=== PATIENT | female | born 1955 | race Caucasian/White ===

== ENCOUNTER → 2016-11-26 | Outpatient (CLI) | payer BC ==
[~2016-11-26] MED LIST: ACET-1256 PO; AMPI500C9 PO; ARFO15NE INH; AUGMENTIN PO; AZIT500T26 PO; BRVIN NEB; CALC1CHW57 PO; CLIN300C2 PO; DOCU-94 PO; FEXO3TAB PO; FLUT0.0529 NAE; IMD/2 PO; IPRASOL4 INH; LACT10CA3 PO; MAGN400T6 PO; METHPOW7 PO; MOUTLIQ83 PO; MRLP17X PO; MULT-506 PO; MULTCHW4 PO; NYSCR30 EXT; OMEG10007 PO; POTA10TA PO; POTA20TA13 PO; PRD10; PRLSR20 PO; PROB1TAB16 PO; TRAV0.00 OPR; TRMO2580 TOP
[2016-11-26 14:01] VITALS: BP 126/82; PULSE 71; TEMP 36.8; O2SAT 96
== END | disposition home or self-care (01) ==
LOC: C.ONC 13:55
PROVIDERS: ATTEND Radiology Radiation Oncology
DX: C20 Malignant neoplasm of rectum (principal)

== ENCOUNTER → 2016-12-10 | Outpatient (CLI) | payer BC ==
[2016-11-26 14:01] VITALS: BP 126/82; PULSE 71
--- NOTE | 2016-11-26 16:40 | Radiation Oncology Follow-Up ---
Radiation Oncology Follow-Up Date of Visit Nov 26, 2016. (Arabella Collier PA-C) Reason For Visit Patient requested an evaluation due to perianal irritation. (Arabella Collier PA-C) Radiation Completion Date finished 11-28-2015 (Arabella Collier PA-C) Diagnosis (1) Rectal cancer Status: Resolved Onset Date: 08/08/2015 Stage: lll Permanent Comment: DIAGNOSIS: Rectum, adenocarcinoma, uT2N1, stage III Status post completion of combined neoadjuvant radiation and chemotherapy. Radiation completed 11/28/2014 received 5040 cGy Chemotherapy comprised of Xeloda Status post laparoscopic low anterior resection with loop ileostomy 01/13/2016 Stage ypT2 ypN0 M0 Adjuvant intravenous chemotherapy for 1 dose then anaphylactic reaction Adjuvant chemotherapy with Xeloda 6 cycles Plan for ileostomy reversal Last Edited By: Arabella Collier on Nov 26, 2016 16 :58 (Arabella Collier PA-C) History of Present Illness Ms. Mcnulty is a 60-year-old female who initially presented with an episode of bright red blood per rectum several months ago. She states she did have a colonoscopy 5 years ago and was scheduled to have a repeat colonoscopy a year following that never had it because of several issues. She states that the bleeding has continued since then went to does pass stool. She went to the emergency room and the beginning of August 2015 and was admitted to [facility]. She underwent a colonoscopy by Dr. Ayala which revealed a large polypoid lesion lesion and 10 cm proximal to the anus that was semi-pedunculated with losing. A biopsy was taken which showed adenocarcinoma and genetic testing did not show the presence of Hardy syndrome. The patient then underwent an lower endoscopic ultrasound on 08/30/[address] Marroquin which confirmed the presence a hypoechoic mass in the rectum at 8 cm from the anal verge. He staged the tumor as uT2N1. He noted that there was one malignant- appearing lymph node in the common iliac region. The patient was referred to Dr. Powell who is recommended preoperative chemoradiation therapy. The patient will be seen by Dr. Henderson at [facility] for surgical evaluation in the end of October. We are now seeing the patient in consultation. She completed combined radiation and chemotherapy. Radiation was completed and received 5040 cGy. Treatment was combined with Xeloda. She underwent the laparoscopic low anterior resection and loop ileostomy 2015. She was hospitalized for 2 days. She has been steadily recuperating. She did lose approximate 20 pounds following surgery. Her appetite has been decreased. The path report revealed invasive adenocarcinoma with a small residual tumor of 0.6 cm. 17 lymph nodes were evaluated and negative for metastatic disease. She was staged ypT2 ypN0. Specimen [id number]. She has seen Dr. Powell in follow-up and recommendation is for adjuvant chemotherapy. A regimen has been recommended. She was given 1 dose of adjuvant IV chemotherapy and had an anaphylactic reaction. Decision was made for no further IV chemotherapy. She then took Xeloda. She did develop severe diarrhea and on one occasion was hospitalized for low magnesium and potassium. This was in June. She completed the treatments and has steadily improved. Her energy levels are getting back to normal. She underwent a barium enema on 08/27/2016. There was no leakage at the anastomosis site. Small contrast-filled outpouching later emptied appears to be related to the surgical technique. She also had a flexible sigmoidoscopic examination. This showed inflamed mucosa in the sigmoid colon. N2 and colorectal anastomosis, characterized by an intact appearance. She also had a CAT scan of the chest abdomen and pelvis on 08/18/2016. There were no acute abdominal or pelvic findings. No evidence of bowel obstruction. No evidence of free fluid. No acute inflammatory changes. No evidence of metastatic disease. CT of the chest showed no acute intrathoracic findings. No CT evidence of intrathoracic metastasis. She will now be going on to have her ileostomy reversed. She also stated that she'll be having a colonoscopy proximally 6 weeks following the ileostomy reversal. (Arabella Collier PA-C) Interim History She has now completed the ileostomy reversal. She unfortunately has frequent loose bowel movements. At times this can become constipated. Many times she' ll have 10 bowel movements per day. With the frequent bowel movements she has developed irritation in the perianal area. She has been using Desitin area and she uses Imodium if the bowels are loose. She has also used Mirilax. She takes Citrucel daily. She is tried Aquaphor also to the anal region. She noticed especially increased loose bowels after eating fresh fruit. She has not been doing sitz baths. She had concerned about irritation after bathing and using soap products. Her appetite is good and her weight is stable. (Arabella Collier PA-C) Allergies Coded Allergies: Levofloxacin (Verified Allergy, Severe, SHORTNESS OF BREATH, 11/26/16) Oxaliplatin (Verified Allergy, Severe, SOB, face numbess, trouble swallowing, 09/29/16) Dust (Verified Allergy, Intermediate, SNEEZING, RUNNY NOSE, ITCHY EYES., 09/29/16) Molds and Smuts (Verified Allergy, Intermediate, RUNNY NOSE, ITCHY EYES, SNEEZING, 09/29/16) Sulfa Antibiotics (Verified Allergy, Mild, HIVES,ITCHY, 09/29/16) Codeine (Verified Adverse Reaction, Mild, NAUSEA, 09/29/16) Morphine and Related (Verified Adverse Reaction, Mild, nausea, 09/29/16) Moxifloxacin (Verified Adverse Reaction, Unknown, "I GET DIZZY.", 09/29/16 ) Home Medications Scheduled Arformoterol Tartrate (Brovana 15MCG/2ML Soln), 1 VIAL NEB BID Calcium W/ Vitamins D & K (Calcium + D), 1 TAB PO DAILY Docusate Sodium (Colace), 1 CAP PO BID Multiple Vitamins W/ Calcium (Viactiv Multi-Vitamin), 1 TAB PO DAILY Potassium Chloride Microencaps (Potassium Chloride Er), 1 TAB PO DAILY Probiotic Product (Probiotic), 1 TAB PO DAILY Scheduled PRN Fluticasone Propionate (Nasal) (Flonase), 1-2 SPRAYS DUANE DAILY PRN Ipratropium-Albuterol (Duoneb), 1 TREATMENT INH Q4H PRN for SOB/Wheezing Loperamide Hcl (Imodium), 2 MG PO Q6 PRN for Diarrhea Omeprazole (Prilosec), 20 MG PO DAILY PRN for ACID REFLUX Review of Systems Gastrointestinal: Symptoms: Constipation, Diarrhea GI Comments: IBS , goes between diarhea and constipation Oral: Symptoms: No Problems Respiratory: Symptoms: WNL Urinary: Symptoms: WNL Skin: Other Skin Symptoms: "anal area is sore " (Arabella Collier PA-C) Physical Exam Pain: Pain Onset: since surgery for reversal Pain Duration: constant Side: Bilateral Patient Pain Scale: 0 - 10 Initial Pain Intensity: 9.0 Pain Description: Burning, Throbbing Additional Comments: gets worse at times Fatigue: None General Appearance: no apparent distress Eyes: normal inspection ENT: normal ENT inspection, hearing grossly normal Respiratory/Chest: lungs clear, no respiratory distress, no accessory muscle use Cardiovascular: regular rate, rhythm, no gallop, no murmur Abdomen: non tender, soft Anal / Rectum: There is erythema of the gluteal fold. This is well demarcated. The borders are more intensely red with a macular distribution. There are no masses or tenderness. No rectal bleeding. No rectal discharge. No telangiectasis. Neurologic/Psychiatric: no motor/sensory deficits (Arabella Collier PA-C) Laboratory Studies Test 09/21/16 08:20 09/29/16 12:00 09/29/16 12:25 10/15/16 09:45 Magnesium Level 2.2 mg/dl (1.8-2.4) Total Bilirubin 0.3 mg/dl (0.2-1) Aspartate Amino Transferase (AST) 21 U/L (15-37) Alanine Aminotransferase (ALT) 29 U/L (12-78) Alkaline Phosphatase 85 U/L (45-117) Total Protein 7.2 gm/dl (6.4-8.2) Albumin 3.6 gm/dl (3.4-5.0) Globulin 3.6 gm/dl (2.5-4.0) Albumin/Globulin Ratio 1.0 (0.9-2) Urine Color YELLOW YELLOW Urine Appearance CLEAR (CLEAR) CLEAR (CLEAR) Urine pH 5.5 (4.5-7.5) 5.5 (4.5-7.5) Urine Specific Donaldson 1.008 (1.000-1.030) 1.017 (1.000-1.030) Urine Protein NEG (NEG) NEG (NEG) Urine Glucose (UA) NEG (NEG) NEG (NEG) Urine Ketones NEG (NEG) NEG (NEG) Urine Occult Blood TRACE (NEG) NEG (NEG) Urine Nitrite NEG (NEG) NEG (NEG) Urine Bilirubin NEG (NEG) NEG (NEG) Urine Urobilinogen NEG (NEG) NEG (NEG) Urine Leukocyte Esterase TRACE (NEG) SMALL (NEG) Urine WBC (Auto) 1-5 /hpf (0-5) 5-10 /hpf (0-5) Urine RBC (Auto) 0-4 /hpf (0-4) 0-4 /hpf (0-4) Urine Hyaline Casts (Auto) 0 /lpf (0-5) 1-5 /lpf (0-5) Urine Epithelial Cells (Auto) 5-10 /lpf (0-5) 10-20 /lpf (0-5) Urine Bacteria (Auto) NEG (NEG) NEG (NEG) White Blood Count 6.90 K/uL (4.8-10.8) Red Blood Count 3.86 M/uL (4.2-5.4) Hemoglobin 11.3 g/dL (12.0-16.0) Hematocrit 33.7 % (37-47) Mean Corpuscular Volume 87.3 fL (80-100) Mean Corpuscular Hemoglobin 29.3 pg (25-34) Mean Corpuscular Hemoglobin Concent 33.5 g/dl (32-36) Platelet Count 193 K/uL (130-400) Mean Platelet Volume 9.4 fL (7.4-10.4) Neutrophils (%) (Auto) 85.9 % Lymphocytes (%) (Auto) 6.8 % Monocytes (%) (Auto) 6.7 % Eosinophils (%) (Auto) 0.4 % Basophils (%) (Auto) 0.1 % Neutrophils # (Auto) 5.92 K/uL (1.4-6.5) Lymphocytes # (Auto) 0.47 K/uL (1.2-3.4) Monocytes # (Auto) 0.46 K/uL (0.11-0.59) Eosinophils # (Auto) 0.03 K/uL (0-0.5) Basophils # (Auto) 0.01 K/uL (0-0.2) RDW Standard Deviation 41.9 fL (36.4-46.3) RDW Coefficient of Variation 13.0 % (11.5-14.5) Immature Granulocyte % (Auto) 0.1 % Immature Granulocyte # (Auto) 0.01 K/uL (0.00-0.02) Sodium Level 137 mmol/L (136-145) Potassium Level 4.0 mmol/L (3.5-5.1) Chloride Level 103 mmol/L (98-107) Carbon Dioxide Level 24 mmol/L (21-32) Anion Gap 10.0 mmol/L (3-11) Blood Urea Nitrogen 18 mg/dl (7-18) Creatinine 0.78 mg/dl (0.60-1.20) Est Creatinine Clear Calc Drug Dose 79.4 ml/min Estimated GFR () 95.8 Estimated GFR (Non- 82.6 BUN/Creatinine Ratio 23.6 (10-20) Random Glucose 95 mg/dl (70-99) Lactic Acid Level 0.5 mmol/L (0.4-2.0) Calcium Level 8.9 mg/dl (8.5-10.1) Test 11/20/16 15:41 11/25/16 15:49 White Blood Count 5.49 K/uL (4.8-10.8) Red Blood Count 4.03 M/uL (4.2-5.4) Hemoglobin 11.5 g/dL (12.0-16.0) Hematocrit 33.1 % (37-47) Mean Corpuscular Volume 82.1 fL (80-100) Mean Corpuscular Hemoglobin 28.5 pg (25-34) Mean Corpuscular Hemoglobin Concent 34.7 g/dl (32-36) Platelet Count 263 K/uL (130-400) Mean Platelet Volume 9.3 fL (7.4-10.4) Neutrophils (%) (Auto) 60.2 % Lymphocytes (%) (Auto) 29.1 % Monocytes (%) (Auto) 5.8 % Eosinophils (%) (Auto) 4.0 % Basophils (%) (Auto) 0.5 % Neutrophils # (Auto) 3.30 K/uL (1.4-6.5) Lymphocytes # (Auto) 1.60 K/uL (1.2-3.4) Monocytes # (Auto) 0.32 K/uL (0.11-0.59) Eosinophils # (Auto) 0.22 K/uL (0-0.5) Basophils # (Auto) 0.03 K/uL (0-0.2) RDW Standard Deviation 42.3 fL (36.4-46.3) RDW Coefficient of Variation 14.0 % (11.5-14.5) Immature Granulocyte % (Auto) 0.4 % Immature Granulocyte # (Auto) 0.02 K/uL (0.00-0.02) Sodium Level 141 mmol/L (136-145) Potassium Level 4.2 mmol/L (3.5-5.1) Chloride Level 105 mmol/L (98-107) Carbon Dioxide Level 25 mmol/L (21-32) Anion Gap 11.0 mmol/L (3-11) Blood Urea Nitrogen 18 mg/dl (7-18) Creatinine 0.77 mg/dl (0.60-1.20) Est Creatinine Clear Calc Drug Dose 83.8 ml/min Estimated GFR () 97.3 Estimated GFR (Non- 83.9 BUN/Creatinine Ratio 23.4 (10-20) Random Glucose 89 mg/dl (70-99) Calcium Level 9.1 mg/dl (8.5-10.1) Total Bilirubin 0.2 mg/dl (0.2-1) Aspartate Amino Transferase (AST) 19 U/L (15-37) Alanine Aminotransferase (ALT) 25 U/L (12-78) Alkaline Phosphatase 97 U/L (45-117) Lactate Dehydrogenase 170 U/L (84-246) Total Protein 6.7 gm/dl (6.4-8.2) Albumin 3.6 gm/dl (3.4-5.0) Globulin 3.1 gm/dl (2.5-4.0) Albumin/Globulin Ratio 1.2 (0.9-2) Magnesium Level 2.3 mg/dl (1.8-2.4) (Arabella Collier PA-C) Assessment & Plan Plan: The irritation is due to frequent liquid bowel movements. This has a fungal appearance in the periphery. We discussed her diet to allow for less frequent bowel movements she will try to avoid fresh fruits. I've asked her to increase the Citrucel to twice daily. She can take the Imodium if needed. Prescription was given for Mycolog II cream to apply QID. I've given her Sween cream. She can alternate these 2 medications. I asked her to do sitz baths twice daily in water only. She'll continue use the adult wipes that do not contained alcohol or perfumes. I asked her to return to our office in 2 weeks. She recalls she has any questions or concerns in the interim. (Arabella Collier PA-C) I agree with note created by Arabella Collier PA-C. I reviewed the patient's chart and information with her. (Veeral. Ma MD) Total Time In Follow-Up I spent 20 minutes speaking to the patient and performing examination. I spent 15 minutes reviewing information in completing this note. (Arabella Collier PA-C) Copy To Casey Powell D.O.; Monika Henderson M.D.; Alex Linn PA-C
[~2016-12-10] MED LIST changes: -AMPI500C9 PO; -MAGN400T6 PO; -MULTCHW4 PO; -POTA20TA13 PO
[2016-12-10 14:29] VITALS: BP 102/64; PULSE 80; TEMP 37.1; O2SAT 99
--- NOTE | 2016-12-10 16:49 | Radiation Oncology Follow-Up ---
Radiation Oncology Follow-Up Date of Visit Dec 10, 2016. (Arabella Collier PA-C) Reason For Visit Patient requested an evaluation due to perianal irritation. (Arabella Collier PA-C) Radiation Completion Date 11/28/15 (Arabella Collier PA-C) Diagnosis (1) Rectal cancer Status: Resolved Onset Date: 08/08/2015 Stage: lll Permanent Comment: DIAGNOSIS: Rectum, adenocarcinoma, uT2N1, stage III Status post completion of combined neoadjuvant radiation and chemotherapy. Radiation completed 11/28/2014 received 5040 cGy Chemotherapy comprised of Xeloda Status post laparoscopic low anterior resection with loop ileostomy 01/13/2016 Stage ypT2 ypN0 M0 Adjuvant intravenous chemotherapy for 1 dose then anaphylactic reaction Adjuvant chemotherapy with Xeloda 6 cycles Plan for ileostomy reversal Last Edited By: Arabella Collier on Nov 26, 2016 16 :58 (Arabella Collier PA-C) Interim History 11/26/2016 She has now completed the ileostomy reversal. She unfortunately has frequent loose bowel movements. At times this can become constipated. Many times she'll have 10 bowel movements per day. With the frequent bowel movements she has developed irritation in the perianal area. She has been using Desitin area and she uses Imodium if the bowels are loose. She has also used Mirilax. She takes Citrucel daily. She is tried Aquaphor also to the anal region. She noticed especially increased loose bowels after eating fresh fruit. She has not been doing sitz baths. She had concerned about irritation after bathing and using soap products. Her appetite is good and her weight is stable. 12/10/2016 She continues to have 5 loose bowel movements per day. She is doing the sitz baths. She uses Citrucel on a regular basis. She is using the Mycolog -II as instructed. She did request a refill. This was given for a 15 g tube which would be covered by a coupon that had been given by patient navigation. She does at times passing mucus with a bowel movement. She returns today for recheck following the use of the Mycolog-II. (Arabella Collier PA-C) Allergies Coded Allergies: Levofloxacin (Verified Allergy, Severe, SHORTNESS OF BREATH, 12/08/16) Oxaliplatin (Verified Allergy, Severe, SOB, face numbess, trouble swallowing, 12/08/16) Dust (Verified Allergy, Intermediate, SNEEZING, RUNNY NOSE, ITCHY EYES., ) Molds and Smuts (Verified Allergy, Intermediate, RUNNY NOSE, ITCHY EYES, SNEEZING, 12/08/16) Sulfa Antibiotics (Verified Allergy, Mild, HIVES,ITCHY, 12/08/16) Codeine (Verified Adverse Reaction, Mild, NAUSEA, 12/08/16) Morphine and Related (Verified Adverse Reaction, Mild, nausea, 12/08/16) Moxifloxacin (Verified Adverse Reaction, Unknown, "I GET DIZZY.", 12/08/16) Home Medications Scheduled Arformoterol Tartrate (Brovana 15MCG/2ML Soln), 1 VIAL NEB BID Calcium W/ Vitamins D & K (Calcium + D), 1 TAB PO BID Clindamycin Hcl (Cleocin), 300 MG PO TID Docusate Sodium (Colace), 1 CAP PO BID Nystatin (Nystatin Cream), 0 EXT NEEDED TO ANUS Potassium Chloride (K-Tabs), 1 TAB PO QAM Probiotic Product (Probiotic), 1 TAB PO QAM Scheduled PRN Fluticasone Propionate (Nasal) (Flonase), 1-2 SPRAYS DUANE DAILY PRN Ipratropium-Albuterol (Duoneb), 1 TREATMENT INH Q4H PRN for SOB/Wheezing Loperamide Hcl (Imodium), 2 MG PO Q6 PRN for Diarrhea Methylcellulose (Laxative) (Citrucel Fiber Laxative), 1 DOSE PO DAILY PRN for Constipation Omeprazole (Prilosec), 20 MG PO DAILY PRN for ACID REFLUX Triamcinolone Acetonide (Topic (Triamcinolone Acet 0.025%), 1 APPLN TOP BID PRN for PRN Review of Systems Gastrointestinal: Symptoms: Constipation, Diarrhea GI Comments: Frequent BMs of small amounts; Oral: Symptoms: No Problems Respiratory: Symptoms: Productive Cough Sputum Character: Greenish yellow sputum; Urinary: Symptoms: WNL Skin: Other Skin Symptoms: C/O perirectal skin irritation that persists;MD to evaluate (Arabella Collier PA-C) Physical Exam Vital Signs Date Time Temp Pulse Resp B/P Pulse Ox O2 Delivery O2 Flow Rate FiO2 12/10/16 14:29 37.1 80 16 102/64 99 Pain: Pain Onset: since surgery for reversal Pain Duration: constant Side: Bilateral Patient Pain Scale: 0 - 10 Initial Pain Intensity: 9.0 Pain Description: Burning, Throbbing Additional Comments: gets worse at times Anal / Rectum: There is marked erythema of the gluteal fold. There are no masses or lesions. There are no oral ulcerations. There is no edema or fistula formation. Extremities: no pedal edema Neurologic/Psychiatric: no motor/sensory deficits, alert, normal mood/affect Skin: warm/dry (Arabella Collier PA-C) Laboratory Studies Test 09/21/16 08:20 09/29/16 12:00 09/29/16 12:25 10/15/16 09:45 Magnesium Level 2.2 mg/dl (1.8-2.4) Total Bilirubin 0.3 mg/dl (0.2-1) Aspartate Amino Transferase (AST) 21 U/L (15-37) Alanine Aminotransferase (ALT) 29 U/L (12-78) Alkaline Phosphatase 85 U/L (45-117) Total Protein 7.2 gm/dl (6.4-8.2) Albumin 3.6 gm/dl (3.4-5.0) Globulin 3.6 gm/dl (2.5-4.0) Albumin/Globulin Ratio 1.0 (0.9-2) Urine Color YELLOW YELLOW Urine Appearance CLEAR (CLEAR) CLEAR (CLEAR) Urine pH 5.5 (4.5-7.5) 5.5 (4.5-7.5) Urine Specific Exira 1.008 (1.000-1.030) 1.017 (1.000-1.030) Urine Protein NEG (NEG) NEG (NEG) Urine Glucose (UA) NEG (NEG) NEG (NEG) Urine Ketones NEG (NEG) NEG (NEG) Urine Occult Blood TRACE (NEG) NEG (NEG) Urine Nitrite NEG (NEG) NEG (NEG) Urine Bilirubin NEG (NEG) NEG (NEG) Urine Urobilinogen NEG (NEG) NEG (NEG) Urine Leukocyte Esterase TRACE (NEG) SMALL (NEG) Urine WBC (Auto) 1-5 /hpf (0-5) 5-10 /hpf (0-5) Urine RBC (Auto) 0-4 /hpf (0-4) 0-4 /hpf (0-4) Urine Hyaline Casts (Auto) 0 /lpf (0-5) 1-5 /lpf (0-5) Urine Epithelial Cells (Auto) 5-10 /lpf (0-5) 10-20 /lpf (0-5) Urine Bacteria (Auto) NEG (NEG) NEG (NEG) White Blood Count 6.90 K/uL (4.8-10.8) Red Blood Count 3.86 M/uL (4.2-5.4) Hemoglobin 11.3 g/dL (12.0-16.0) Hematocrit 33.7 % (37-47) Mean Corpuscular Volume 87.3 fL (80-100) Mean Corpuscular Hemoglobin 29.3 pg (25-34) Mean Corpuscular Hemoglobin Concent 33.5 g/dl (32-36) Platelet Count 193 K/uL (130-400) Mean Platelet Volume 9.4 fL (7.4-10.4) Neutrophils (%) (Auto) 85.9 % Lymphocytes (%) (Auto) 6.8 % Monocytes (%) (Auto) 6.7 % Eosinophils (%) (Auto) 0.4 % Basophils (%) (Auto) 0.1 % Neutrophils # (Auto) 5.92 K/uL (1.4-6.5) Lymphocytes # (Auto) 0.47 K/uL (1.2-3.4) Monocytes # (Auto) 0.46 K/uL (0.11-0.59) Eosinophils # (Auto) 0.03 K/uL (0-0.5) Basophils # (Auto) 0.01 K/uL (0-0.2) RDW Standard Deviation 41.9 fL (36.4-46.3) RDW Coefficient of Variation 13.0 % (11.5-14.5) Immature Granulocyte % (Auto) 0.1 % Immature Granulocyte # (Auto) 0.01 K/uL (0.00-0.02) Sodium Level 137 mmol/L (136-145) Potassium Level 4.0 mmol/L (3.5-5.1) Chloride Level 103 mmol/L (98-107) Carbon Dioxide Level 24 mmol/L (21-32) Anion Gap 10.0 mmol/L (3-11) Blood Urea Nitrogen 18 mg/dl (7-18) Creatinine 0.78 mg/dl (0.60-1.20) Est Creatinine Clear Calc Drug Dose 79.4 ml/min Estimated GFR () 95.8 Estimated GFR (Non- 82.6 BUN/Creatinine Ratio 23.6 (10-20) Random Glucose 95 mg/dl (70-99) Lactic Acid Level 0.5 mmol/L (0.4-2.0) Calcium Level 8.9 mg/dl (8.5-10.1) Test 11/20/16 15:41 11/25/16 15:49 White Blood Count 5.49 K/uL (4.8-10.8) Red Blood Count 4.03 M/uL (4.2-5.4) Hemoglobin 11.5 g/dL (12.0-16.0) Hematocrit 33.1 % (37-47) Mean Corpuscular Volume 82.1 fL (80-100) Mean Corpuscular Hemoglobin 28.5 pg (25-34) Mean Corpuscular Hemoglobin Concent 34.7 g/dl (32-36) Platelet Count 263 K/uL (130-400) Mean Platelet Volume 9.3 fL (7.4-10.4) Neutrophils (%) (Auto) 60.2 % Lymphocytes (%) (Auto) 29.1 % Monocytes (%) (Auto) 5.8 % Eosinophils (%) (Auto) 4.0 % Basophils (%) (Auto) 0.5 % Neutrophils # (Auto) 3.30 K/uL (1.4-6.5) Lymphocytes # (Auto) 1.60 K/uL (1.2-3.4) Monocytes # (Auto) 0.32 K/uL (0.11-0.59) Eosinophils # (Auto) 0.22 K/uL (0-0.5) Basophils # (Auto) 0.03 K/uL (0-0.2) RDW Standard Deviation 42.3 fL (36.4-46.3) RDW Coefficient of Variation 14.0 % (11.5-14.5) Immature Granulocyte % (Auto) 0.4 % Immature Granulocyte # (Auto) 0.02 K/uL (0.00-0.02) Sodium Level 141 mmol/L (136-145) Potassium Level 4.2 mmol/L (3.5-5.1) Chloride Level 105 mmol/L (98-107) Carbon Dioxide Level 25 mmol/L (21-32) Anion Gap 11.0 mmol/L (3-11) Blood Urea Nitrogen 18 mg/dl (7-18) Creatinine 0.77 mg/dl (0.60-1.20) Est Creatinine Clear Calc Drug Dose 83.8 ml/min Estimated GFR () 97.3 Estimated GFR (Non- 83.9 BUN/Creatinine Ratio 23.4 (10-20) Random Glucose 89 mg/dl (70-99) Calcium Level 9.1 mg/dl (8.5-10.1) Total Bilirubin 0.2 mg/dl (0.2-1) Aspartate Amino Transferase (AST) 19 U/L (15-37) Alanine Aminotransferase (ALT) 25 U/L (12-78) Alkaline Phosphatase 97 U/L (45-117) Lactate Dehydrogenase 170 U/L (84-246) Total Protein 6.7 gm/dl (6.4-8.2) Albumin 3.6 gm/dl (3.4-5.0) Globulin 3.1 gm/dl (2.5-4.0) Albumin/Globulin Ratio 1.2 (0.9-2) Magnesium Level 2.3 mg/dl (1.8-2.4) (Arabella Collier PA-C) Assessment & Plan Plan: The patient will be evaluated for Clostridium difficile. An order was given for her to bring in the specimen. She'll continue the sitz baths. Prescription was given for the Mycolog-II that she has been using. She is scheduled for colonoscopy on 12/14/[address] Amaral. We will be in contact with him to discuss the issue of ongoing frequent bowel movements. She may benefit from cholestyramine. We'll discuss this with him. She'll be notified as to results of the stool evaluation. If she does have Clostridium difficile this will be treated. The patient was seen and examined by Dr. Ma. We'll otherwise have her return to our office in 1 year. (Arabella Collier PA-C) I agree with note created by Arabella Collier PA-C. I reviewed the patient's chart and information with her. I have examined and evaluated the patient. I reviewed relevant clinical information and answered the patient's and/or family' s questions. (Veeral. Ma MD) Total Time In Follow-Up We spent 20 minutes speaking to the patient and performing examination. I spent 15 minutes reviewing information in completing this note. (Arabella Collier PA-C) I spent 15 minutes examining and counseling the patient. (Veeral. Ma MD) Copy To Casey Powell, Felicitas; Anant Amaral M.D.; Monika Henderson M.D.; Lon Smith M.D.
== END | disposition home or self-care (01) ==
LOC: C.ONC 14:18
PROVIDERS: ATTEND Radiology Radiation Oncology
DX: Z08 Encounter for follow-up examination after completed treatment for malignant neoplasm (principal); Z92.3 Personal history of irradiation; Z85.048 Personal history of other malignant neoplasm of rectum, rectosigmoid junction, and anus

== ENCOUNTER → 2016-12-12 | Outpatient (CLI) | payer BC | END | disposition home or self-care (01) | LOC: C.LABSPEC 08:47 | PROVIDERS: ATTEND Radiology Radiation Oncology | DX: C20 Malignant neoplasm of rectum (principal) ==

== ENCOUNTER → 2016-12-31 | Day surgery (SDC) | payer BC ==
[2016-12-08 15:17] VITALS: BMI 27.0
[2016-12-24 15:48] VITALS: BMI 27.0
[~2016-12-31] VITALS: Ht 167.6 cm; Wt 77.3 kg
[~2016-12-31] MED LIST changes: -CLIN300C2 PO; +LIDOCAINE HCL 2% 2 ML VIAL (20MG/ML) ONE; +PROPOFOL IV EMULSION 10 MG/ML 20 ML VIAL IV ONE; +SODIUM CHLORIDE 0.9% 500ML 500 ML IV ONE
[2016-12-31 09:12] VITALS: Ht 167.6 cm; Wt 77.3 kg
--- NOTE | 2016-12-31 09:47 | Endo History and Physical ---
History & Physical Date of Service: Dec 31, 2016. Chief Complaint: RECTAL CANCER Referring Physician: GÓMEZ CHENEY, DR GARRY [facility] History of Present Illness diarrhea Past Medical History Arthritis, Asthma, Reflux, Cancer, High Cholesterol, COPD, Depression Past Surgical History Hx Cardiac Surgery: No Hx Internal Defibrillator: No Hx Pacemaker: No Hx Abdominal Surgery: Yes (JESSIE, ECOPTIC X 2 SX) Hx of Implantable Prosthesis: No Hx Post-Op Nausea and Vomiting: Yes Hx Cancer Surgery: Yes (COLON RESECTION WITH ILEOSTOMY AND REVERSAL) Hx Thoracic Surgery: No Hx Orthopedic: Yes (RT KNEE ARTHROSCOPY) Hx Urinary Tract Surgery: No Family History Polyp, IBD Social History Smoking Status: Former Smoker Hx Substance Use: No Hx Alcohol Use: Yes (RARELY) Allergies Coded Allergies: Levofloxacin (Verified Allergy, Severe, SHORTNESS OF BREATH, 12/24/16) Oxaliplatin (Verified Allergy, Severe, SOB, face numbess, trouble swallowing, 12/24/16) Dust (Verified Allergy, Intermediate, SNEEZING, RUNNY NOSE, ITCHY EYES., ) Molds and Smuts (Verified Allergy, Intermediate, RUNNY NOSE, ITCHY EYES, SNEEZING, 12/24/16) Sulfa Antibiotics (Verified Allergy, Mild, HIVES,ITCHY, 12/24/16) Codeine (Verified Adverse Reaction, Mild, NAUSEA, 12/24/16) Morphine and Related (Verified Adverse Reaction, Mild, nausea, 12/24/16) Moxifloxacin (Verified Adverse Reaction, Unknown, "I GET DIZZY.", 12/24/16) Current Medications Reported Home Medications Medications Dose Route/Sig Max Daily Dose Days Date Category Dose Instructions Mucinex Allergy (Fexofenadine HCl) 180 Mg Tab 1 Tab PO BID PRN 12/24/16 Reported Nystatin Cream (Nystatin) 90 Appln/30 Gm Cr 0 EXT NEEDED TO ANUS 12/08/16 Reported APPLY TO AFFECTED AREA BID Triamcinolone Acet 0.025% (Triamcinolone Acetonide (Topic) 0.025 % Oin 1 Appln TOP BID PRN 12/08/16 Reported Citrucel Fiber Laxative (Methylcellulose (Laxative)) 1 Pow Pow 1 Dose PO DAILY PRN 12/08/16 Reported K-Tabs (Potassium Chloride) 10 Meq Tab 1 Tab PO QAM 12/08/16 Reported Imodium (Loperamide HCl) 2 Mg Cap 2 Mg PO Q6 PRN 11/26/16 Reported Colace (Docusate Sodium) 100 Mg Cap 1 Cap PO BID 15 11/26/16 Reported Probiotic (Probiotic Product) 1 Tab Tab 1 Tab PO QAM 07/05/16 Reported Calcium + D (Calcium W/ Vitamins D & K) 1 Chw Chw 1 Tab PO BID 03/15/16 Reported Prilosec (Omeprazole) 20 Mg Capcr 20 Mg PO DAILY PRN 03/15/16 Reported Duoneb (Ipratropium-Albuterol) 3 Ml Nebu 1 Treatment INH Q4H PRN 11/02/13 Reported Flonase (Fluticasone Propionate (Nasal)) 50 Mcg/Act Spr 1-2 Sprays DUANE DAILY PRN 05/22/13 Reported Brovana 15MCG/2ML Soln (Arformoterol Tartrate) Nebu 1 Vial NEB BID 08/10/11 Reported Vital Signs Weight (Kilograms): 77.27 Height (Feet): 5 Height (Inches): 6 Date Time Temp Pulse Resp B/P Pulse Ox O2 Delivery O2 Flow Rate FiO2 12/31/16 09:14 36.6 74 20 136/69 99 Room Air Physical Exam General Appearance: no apparent distress Respiratory/Chest: Auscultation: breath sounds normal Cardiovascular: Heart Auscultation: RRR Abdomen: Inspection & Palpation: soft Assessment and Plan diarrhea - cscopy
--- NOTE | 2016-12-31 10:47 | Discharge Instructions ---
Endoscopy Patient Instructions Date / Procedure(s) Performed Dec 31, 2016. Colonoscopy Allergy Information Coded Allergies: Levofloxacin (Verified Allergy, Severe, SHORTNESS OF BREATH, 12/24/16) Oxaliplatin (Verified Allergy, Severe, SOB, face numbess, trouble swallowing, 12/24/16) Dust (Verified Allergy, Intermediate, SNEEZING, RUNNY NOSE, ITCHY EYES., ) Molds and Smuts (Verified Allergy, Intermediate, RUNNY NOSE, ITCHY EYES, SNEEZING, 12/24/16) Sulfa Antibiotics (Verified Allergy, Mild, HIVES,ITCHY, 12/24/16) Codeine (Verified Adverse Reaction, Mild, NAUSEA, 12/24/16) Morphine and Related (Verified Adverse Reaction, Mild, nausea, 12/24/16) Moxifloxacin (Verified Adverse Reaction, Unknown, "I GET DIZZY.", 12/24/16) Discharge Date / Findings Dec 31, 2016. Unremarkable post surgical anatomy Medication Instructions Stopped Medication(s): STOPPED MULTIVITAMIN 12/24/16 AND CALCIUM 12/24/16 Provider Instructions Activity Restrictions - No exercising or heavy lifting for 24 hours. - Do not drink alcohol the day of the procedure. - Do not drive a car or operate machinery until the day after the procedure. - Do not make any important decisions or sign important papers in 24 hours after the procedure. Following Day: - Return to full activity which may include returning to work/school. Diet Start your diet with liquids and light foods (jello, soup, juice, toast). Then eat your usual diet if not nauseated. Treatment For Common After Affects For mild abdominal pain, bloating, or excessive gas: - Rest - Eat lightly - Lie on right side Follow-Up Information Follow-up with GÓMEZ CHENEY, DR GARRY BALLARD [facility] as scheduled Anesthesia Information What You Should Know You have had a procedure that required some medicine to reduce anxiety and discomfort. This treatment is called moderate sedation. After receiving the treatment, you may be sleepy, but you will be able to breathe on your own. The effects of the treatment may last for several hours. Follow these instructions along with Activity/Diet recommendations noted above: * Do NOT do anything where dizziness or clumsiness would be dangerous. * Rest quietly at home today, then you can be up and about tomorrow. * Have a responsible person stay with you the rest of today. * You may have had an I.V. today. If so, you may take the dressing off later today. Recommendations Call your doctor if: * Trouble breathing * Continuous vomiting for more than 24 hours * Temperature above 101 degrees * Severe abdominal pain or bloating * Pain not relieved by pain medicine ordered * There is increased drainage or redness from any incision * A large amount of rectal bleeding greater than 2-3 tablespoons. (If you had a polyp/s removed or have hemorrhoids, a small amount of blood - from the rectum is to be expected.) * You have any unanswered questions or concerns. IN THE EVENT OF A SERIOUS EMERGENCY, GO TO THE NEAREST EMERGENCY ROOM Your discharge instructions were prepared by provider Anant Parker. Patient Instructions Signature Page Marion Mcnulty Patient (or Guardian) Signature/Date: I have read and understand the instructions given to me by my caregivers. Caregiver/RN/Doctor Signature/Date: The above-named patient and/or guardian has received patient instructions on this date. + Original Patient Signature Page (only) stays with chart. Please make copy for patient.
[2016-12-31 11:05] VITALS: BP 124/60; PULSE 72; O2SAT 100
--- NOTE | 2016-12-31 11:08 | GI REPORT ---
Procedure Date: 12/31/2016 9:24 AM Procedure: Colonoscopy Indications: High risk colon cancer surveillance: Personal history of colon cancer, diarrhea - s/p LAR 01/2016 Medicines: See the Anesthesia note for documentation of the administered medications Complications: No immediate complications. Estimated Blood Loss: Estimated blood loss: none. Procedure: Pre-Anesthesia Assessment: - ASA Grade Assessment: III - A patient with severe systemic disease. After I obtained informed consent, the scope was passed under direct vision. Throughout the procedure, the patient's blood pressure, pulse, and oxygen saturations were monitored continuously. The scope was introduced through the anus and advanced to the terminal ileum. The colonoscopy was somewhat difficult due to significant looping. The patient tolerated the procedure well. The quality of the bowel preparation was good. Findings: Marked erythema of the perianal skin. There was evidence of a low rectal anastamosis. The anastamosis was unremarkable, and was without evidence of recurrence. The exam was otherwise without abnormality. Random biopsies done throughout the colon. Impression: - Unremarkable post surgical exam. Recommendation: - Discharge patient to home. Repeat exam in 1 year. Anant Amaral M.D. Anant Amaral MD 12/31/2016 10:34:14 AM This report has been signed electronically. Note Initiated On: 12/31/2016 9:24 AM I attest to the content of the Intraoperative Record and orders documented therein, exceptions below
--- NOTE | 2016-12-31 12:10 | Anesthesiology Progress Note ---
Anesthesia Post Op Note Date & Time Dec 31, 2016 at 12:09 Vital Signs Pain Intensity: 0 Vital Signs Past 12 Hours Date Time Temp Pulse Resp B/P Pulse Ox O2 Delivery O2 Flow Rate FiO2 12/31/16 11:05 72 20 124/60 100 Room Air 12/31/16 10:50 76 20 126/57 100 Room Air 12/31/16 10:35 74 20 100/52 97 Room Air 12/31/16 09:14 36.6 74 20 136/69 99 Room Air Notes Mental Status: alert / awake / arousable, participated in evaluation Pt Amnestic to Procedure: Yes Nausea / Vomiting: adequately controlled Pain: adequately controlled Airway Patency, RR, SpO2: stable & adequate BP & HR: stable & adequate Hydration State: stable & adequate Anesthetic Complications: no major complications apparent
[2017-01-01 18:00] LABS: O&P GIARDIA AG NOT DETECTED (NOT DETECTED)
== END | disposition home or self-care (01) ==
LOC: C.GI 08:38
PROVIDERS: ATTEND Internal Medicine Gastroenterology
DX: Z12.11 Encounter for screening for malignant neoplasm of colon (principal); Z86.010 Personal history of colon polyps; K62.89 Other specified diseases of anus and rectum; Z98.0 Intestinal bypass and anastomosis status; Z83.79 Family history of other diseases of the digestive system; K21.9 Gastro-esophageal reflux disease without esophagitis; M19.90 Unspecified osteoarthritis, unspecified site; J45.909 Unspecified asthma, uncomplicated; F32.9 Major depressive disorder, single episode, unspecified; Z98.890 Other specified postprocedural states; E78.5 Hyperlipidemia, unspecified; J44.9 Chronic obstructive pulmonary disease, unspecified; Z87.891 Personal history of nicotine dependence; Z88.2 Allergy status to sulfonamides; Z88.5 Allergy status to narcotic agent; Z88.8 Allergy status to other drugs, medicaments and biological substances

== ENCOUNTER → 2017-02-19 | Outpatient (CLI) | payer BC ==
[~2017-02-19] MED LIST changes: -LIDOCAINE HCL 2% 2 ML VIAL (20MG/ML) ONE; +OPTIRAY 320 IV PRN; -PROPOFOL IV EMULSION 10 MG/ML 20 ML VIAL IV ONE; -SODIUM CHLORIDE 0.9% 500ML 500 ML IV ONE
--- NOTE | 2017-02-19 11:45 | DIAGNOSTIC IMAGING REPORT ---
ABDOMEN AND PELVIS CT WITH IV AND ORAL CONTRAST CT DOSE: 973.98 mGy.cm HISTORY: Rectal cancer. Follow-up. TECHNIQUE: Multiaxial CT images of the abdomen and pelvis were performed following the use of intravenous and oral contrast. COMPARISON STUDY: Abdomen and pelvis CT 08/18/2016. FINDINGS: There is a new 3 mm nodule within the right lung base on image 6. A 2 mm nodule within the right lung base in image 7 remains stable. No suspicious lytic or blastic osseous lesions. Stable 12 mm hypodense lesion within the left hepatic lobe. No new hepatic lesions identified. The spleen, pancreas, adrenal glands, and kidneys are unremarkable. Cholecystectomy. Small fat-containing umbilical hernia, unchanged. Evidence for prior rectal anastomosis. Mild presacral thickening remains unchanged. This favors post treatment changes. No perirectal lymphadenopathy. Calcified uterine fibroid. Normal bladder. Moderate stool within the colon. No bowel wall thickening or obstruction. Normal appendix. No retroperitoneal or mesenteric lymphadenopathy. No suspicious lytic or blastic osseous lesions. IMPRESSION: 1. A new 3 mm nodule within the right lower lobe. Follow is recommended to ensure stability. 2. Otherwise, no evidence for metastatic disease within the abdomen or pelvis. 3. Mild presacral soft tissue thickening remains unchanged. This favors post treatment changes. Electronically signed by: Alexys Gonsales M.D. 02/19/2017 11:43 AM Dictated Date/Time: 02/19/2017 11:34 AM
--- NOTE | 2017-02-19 11:59 | DIAGNOSTIC IMAGING REPORT ---
CT OF THE CHEST WITH IV CONTRAST CLINICAL HISTORY: Rectal cancer. COMPARISON STUDY: Chest CT August 18, 2016. TECHNIQUE: Following IV administration of 94 mL of Optiray-320, helical axial images of the chest were obtained. Images were viewed in the axial, sagittal and coronal planes. IV contrast was administered without complication. FINDINGS: No enlarged axillary, mediastinal or hilar lymph nodes are present. A left sided [id number]-[id number] is in place. The size of the heart is normal. There is no pericardial effusion. Central airways are patent. A 4 mm right lower lobe nodule shown image 233 of 336 is new since prior exam. A few additional tiny pulmonary nodules are unchanged. No suspicious osseous lesion is present. The abdomen and pelvis will be reported separately. IMPRESSION: 1. New 4 mm right lower lobe pulmonary nodule. This nodule is indeterminate given the clinical history. A follow-up chest CT in 6 months is recommended. 2. Otherwise, unchanged appearance of the chest. No thoracic lymphadenopathy. Electronically signed by: Emmanuel Gupta M.D. 02/19/2017 11:57 AM Dictated Date/Time: 02/19/2017 11:34 AM
== END | disposition home or self-care (01) ==
LOC: C.CTS 10:44
PROVIDERS: ATTEND Internal Medicine Hematology & Oncology
DX: C20 Malignant neoplasm of rectum (principal); R91.1 Solitary pulmonary nodule

== ENCOUNTER → 2017-02-26 | Outpatient (CLI) | payer BC ==
[~2017-02-26] MED LIST changes: -OPTIRAY 320 IV PRN
--- NOTE | 2017-03-01 13:19 | MAMMOGRAPHY REPORT ---
BILATERAL DIGITAL SCREENING MAMMOGRAM TOMOSYNTHESIS WITH CAD: 02/26/2017 CLINICAL HISTORY: Routine screening. Patient has no complaints. TECHNIQUE: Breast tomosynthesis in addition to standard 2D mammography was performed. Current study was also evaluated with a Computer Aided Detection (CAD) system. COMPARISON: Comparison is made to exams dated: 11/05/2015 mammogram, 07/03/2013 mammogram, 07/10/2014 mammogram, 06/10/2012 mammogram, 06/02/2011 mammogram, and 05/30/2010 mammogram - [facility]. BREAST COMPOSITION: There are scattered areas of fibroglandular density in both breasts. FINDINGS: No suspicious masses, calcifications, or areas of architectural distortion are noted in e ither breast. There has been no significant interval change compared to prior exams. IMPRESSION: ACR BI-RADS CATEGORY 1: NEGATIVE There is no mammographic evidence of malignancy. A 1 year screening mammogram is recommended. The p atient will receive written notification of the results. Approximately 10% of breast cancers are not detected with mammography. A negative mammographic repor t should not delay biopsy if a clinically suggestive mass is present. Debby Arce M.D. ah/:02/28/2017 13:32:10 Shield Operator: Ascencion HAGAN(R)(M), [facility] letter sent: Normal 1/2 BI-RADS Code: ACR BI-RADS Category 1: Negative
== END | disposition home or self-care (01) ==
LOC: C.MAMM 15:27
PROVIDERS: ATTEND Obstetrics & Gynecology
DX: Z12.31 Encounter for screening mammogram for malignant neoplasm of breast (principal)

== ENCOUNTER 2017-05-04 05:11 | Day surgery (SDC) | payer BC ==
[2017-04-22 09:39] VITALS: BMI 28.0
--- NOTE | 2017-04-22 10:18 | PAT Medication Instructions ---
Service Date Apr 22, 2017. Current Home Medication List Acetaminophen (Tylenol), 500-1,000 MG PO PRN Arformoterol Tartrate (Brovana 15MCG/2ML Soln), 1 VIAL NEB BID Calcium W/ Vitamins D & K (Calcium + D), 1 TAB PO QAM Fish Oil (Wellington-3), 1 CAP PO QAM Ipratropium-Albuterol (Duoneb), 1 TREATMENT INH Q4H PRN for SOB/Wheezing Lactobacillus-Inulin (Culturelle), 2 TAB PO QAM Loperamide Hcl (Imodium), 4 MG PO Q6 PRN for Diarrhea Methylcellulose (Laxative) (Citrucel Fiber Laxative), 1 DOSE PO QPM Mouthwashes (Biotene Dry Mouth Oral Ri), 1 DOSE PO PRN Multivitamin (Multivitamin), 1 TAB PO BID Nystatin (Nystatin Cream), 0 EXT NEEDED TO ANUS Omeprazole (Prilosec), 20 MG PO DAILY PRN for ACID REFLUX Polyethylene (Miralax), 1 DOSE PO QPM Potassium Chloride (K-Tabs), 1 TAB PO BID Travoprost (Travatan Z), 1 DROPS OPR HS Triamcinolone Acetonide (Topic (Triamcinolone Acet 0.025%), 1 APPLN TOP BID PRN for PRN [Augmentin], 875 MG PO BID Medication Instructions For Your Scheduled Surgery [Augmentin], 875 MG PO BID (to be completed prior to surgery) - Hold the following medications starting 04/23/17: Fish Oil (Wellington-3), 1 CAP PO QAM Calcium W/ Vitamins D & K (Calcium + D), 1 TAB PO QAM - Hold the following medications 24 hours prior to surgery: Triamcinolone Acetonide (Topic (Triamcinolone Acet 0.025%), 1 APPLN TOP BID PRN for PRN Nystatin (Nystatin Cream), 0 EXT NEEDED TO ANUS - Hold the following medications the morning of surgery: Potassium Chloride (K-Tabs), 1 TAB PO BID Multivitamin (Multivitamin), 1 TAB PO BID Loperamide Hcl (Imodium), 4 MG PO Q6 PRN for Diarrhea Lactobacillus-Inulin (Culturelle), 2 TAB PO QAM Mouthwashes (Biotene Dry Mouth Oral Ri), 1 DOSE PO PRN - Take the following medications the morning of surgery with a sip of water: Omeprazole (Prilosec), 20 MG PO DAILY PRN for ACID REFLUX (if needed) Ipratropium-Albuterol (Duoneb), 1 TREATMENT INH Q4H PRN for SOB/Wheezing (if needed) Arformoterol Tartrate (Brovana 15MCG/2ML Soln), 1 VIAL NEB BID Acetaminophen (Tylenol), 500-1,000 MG PO PRN (if needed) - Take the following medications as scheduled the night before surgery: Travoprost (Travatan Z), 1 DROPS OPR HS Potassium Chloride (K-Tabs), 1 TAB PO BID Polyethylene (Miralax), 1 DOSE PO QPM Mouthwashes (Biotene Dry Mouth Oral Ri), 1 DOSE PO PRN (if needed) Methylcellulose (Laxative) (Citrucel Fiber Laxative), 1 DOSE PO QPM Loperamide Hcl (Imodium), 4 MG PO Q6 PRN for Diarrhea (if needed) Ipratropium-Albuterol (Duoneb), 1 TREATMENT INH Q4H PRN for SOB/Wheezing (if needed) Arformoterol Tartrate (Brovana 15MCG/2ML Soln), 1 VIAL NEB BID Acetaminophen (Tylenol), 500-1,000 MG PO PRN (if needed) If you have any questions please call us at [phone] or [phone] or [phone]
[2017-04-22 11:09] LABS: BASO % 0.4 %; BASO ABS # 0.02 K/uL (0-0.2); COMPLETE YES; EOS % 4.8 %; HEMATOCRIT 37.3 % (37-47); IG% 0.2 %; LYMPH % 21.2 %; LYMPH ABS # 1.07 K/uL (1.2-3.4); MEAN CELL VOLUME 85.2 fL (80-100); MEAN CORPUSCULAR HEMOGLOBIN 27.9 pg (25-34); MEAN CORPUSCULAR HGB CONC 32.7 g/dl (32-36); MEAN PLATELET VOLUME 9.4 fL (7.4-10.4); MONO % 7.3 %; NEUT % 66.1 %; PLATELET COUNT 252 K/uL (130-400); RED BLOOD COUNT 4.38 M/uL (4.2-5.4); WHITE BLOOD COUNT 5.05 K/uL (4.8-10.8)
[2017-04-22 11:11] LABS: CREATININE 0.87 mg/dl (0.60-1.20)
[2017-04-22 11:12] LABS: BUN/CREATININE RATIO 28.7 (10-20); CALCIUM 9.1 mg/dl (8.5-10.1); POTASSIUM 4.4 mmol/L (3.5-5.1)
[~2017-05-04] VITALS: Ht 167.6 cm; Wt 81.0 kg
[~2017-05-04 05:11] MED LIST changes: -ACET-1256 PO; -ARFO15NE INH; -AZIT500T26 PO; -DOCU-94 PO; -FEXO3TAB PO; -FLUT0.0529 NAE; -IMD/2 PO; -IPRASOL4 INH; -LACT10CA3 PO; -METHPOW7 PO; -MRLP17X PO; -MULT-506 PO; -OMEG10007 PO; -POTA10TA PO; -PRD10; -PRLSR20 PO; -PROB1TAB16 PO; -TRAV0.00 OPR
[2017-05-04 05:34] VITALS: BP 105/54; PULSE 61; TEMP 37; O2SAT 99; Ht 167.6 cm; Wt 81.0 kg
[2017-05-04] MEDS ORDERED: LACTATED RINGER'S 1000ML 1,000 ML IV SCH ×2 (06:00→07:35)
[2017-05-04] MEDS ORDERED: FENTANYL CITRATE INJ 50 MCG/1 ML 2 ML VIAL IV PRN (06:30)
[2017-05-04] MEDS ORDERED: ONDANSETRON INJ 2 MG/ML 2 ML VIAL IV PRN ×2 (06:30→07:45)
[2017-05-04] MEDS ORDERED: EpHEDrine SULFATE INJ 50 MG/ML AMP IV PRN (06:30)
[2017-05-04] MEDS ORDERED: ATROPINE SULFATE 0.1 MG/ML 5ML SYR IV PRN (06:30)
[2017-05-04] MEDS ORDERED: LIDOCAINE HCL 1% 20 ML VIAL ONE (06:37)
--- NOTE | 2017-05-04 06:37 | History & Physical Bridge Note ---
H&P Re-Evaluation Bridge Note: I have examined the patient, reviewed the History & Physical and in the interval since the performance of the History & Physical I have noted the following changes of clinical significance: No changes noted family at bedside
[2017-05-04] MEDS ORDERED: LIDOCAINE HCL 2% 2 ML VIAL (20MG/ML) ONE (06:38)
[2017-05-04] MEDS ORDERED: FENTANYL CITRATE INJ 50 MCG/1 ML 2 ML VIAL ONE (06:38)
[2017-05-04] MEDS ORDERED: MIDAZOLAM HCL 1 MG/ML 2ML VIAL ONE (06:38)
[2017-05-04] MEDS ORDERED: PROPOFOL IV EMULSION 10 MG/ML 20 ML VIAL IV ONE (06:38)
--- NOTE | 2017-05-04 07:00 | Discharge Instructions ---
Discharge Instructions Date of Service May 04, 2017. Visit Reason for Visit: Port A Cath In Place, Adenocarcinoma Of Colon Discharge Discharge Diagnosis / Problem: A-port removal Discharge Goals Goal(s): Increase independence Activity Recommendations Activity Limitations: as noted below Shower/Bathe: tomorrow Driving or Machine Use: resume 1 day after discharge Anesthesia . Post Anesthesia Instructions: If you have had General Anesthesia or IV Sedation: * Do not drive today. * Resume driving when surgeon permits. * Do not make important decisions or sign legal documents today. * Call surgeon for: 1. Temperature elevations greater than 101 degrees F. 2. Uncontrollable pain. 3. Excessive bleeding. 4. Persistent nausea and vomiting. 5. Medication intolerance (nausea, vomiting or rash). * For nausea and vomiting use only clear liquids such as: tea, soda, bouillon until nausea subsides, then gradually increase diet as tolerated. * If you have any concerns or questions, call your surgeon's office. If physician is unavailable and it is an emergency, call 911 or go to the nearest emergency room. . Instructions / Follow-Up Instructions / Follow-Up Dr. Chavez's office in 1-2 weeks, call [phone] for any questions or concerns Diet Recommendations Recommended Home Diet: no limitations Pending Studies Studies pending at discharge: no Medical Emergencies . Who to Call and When: Medical Emergencies: If at any time you feel your situation is an emergency, please call 911 immediately. . Non-Emergent Contact Non-Emergency issues call your: Surgeon Call Non-Emergent contact if: you have a fever, temperature is above 101.5, your pain is not controlled, wound has increased redness, you have any medication questions . . "Provider Documentation" section prepared by Gregg Breaux. .
[2017-05-04] MEDS ORDERED: ONDANSETRON INJ 2 MG/ML 2 ML VIAL ONE (07:15)
--- NOTE | 2017-05-04 07:29 | [facility] Post Operative Brief Note ---
Immediate Operative Summary Operative Date May 04, 2017. Pre-Operative Diagnosis A-port exhausted Post-Operative Diagnosis A-port same Procedure(s) Performed Infusaport Removal Left Chest Surgeon Dr. Chaevz Transition Teacher Surgeon(s) none Estimated Blood Loss 1 ml Findings as preop Specimens A: Explanted A-Port Anesthesia 1%xyl (4cc) and iv sedation
[2017-05-04] MEDS ORDERED: HYDROCODONE/ACETAMOPHEN 5/325MG TAB PO PRN (07:45)
[2017-05-04] MEDS ORDERED: MoRPHine SULFATE 2 MG/ML CARP IV PRN (07:45)
--- NOTE | 2017-05-04 07:52 | Anesthesiology Progress Note ---
Anesthesia Post Op Note Date & Time May 04, 2017 at 07:51 Vital Signs Pain Intensity: 0 Vital Signs Past 12 Hours Date Time Temp Pulse Resp B/P (MAP) Pulse Ox O2 Delivery O2 Flow Rate FiO2 05/04/17 07:45 36.7 63 18 117/68 95 05/04/17 07:43 61 18 05/04/17 07:43 61 18 95 05/04/17 07:41 116/60 05/04/17 07:38 62 21 100 05/04/17 07:38 63 21 05/04/17 07:36 109/63 05/04/17 07:33 63 17 100 05/04/17 07:33 64 17 05/04/17 07:31 111/59 05/04/17 07:29 103/57 05/04/17 07:28 36.8 61 16 103/57 99 Mask 10 05/04/17 07:28 9 05/04/17 07:28 62 9 05/04/17 05:34 37 61 18 105/54 (71) 99 Room Air Notes Mental Status: alert / awake / arousable, participated in evaluation Pt Amnestic to Procedure: Yes Nausea / Vomiting: adequately controlled Pain: adequately controlled Airway Patency, RR, SpO2: stable & adequate BP & HR: stable & adequate Hydration State: stable & adequate Anesthetic Complications: no major complications apparent
[2017-05-04 08:00] VITALS: BP 111/56; PULSE 63; TEMP 36.6; O2SAT 98
[2017-05-04 08:28] VITALS: BP 126/57; PULSE 66; TEMP 36.4; O2SAT 100
--- NOTE | 2017-05-31 08:54 | OPERATIVE REPORT ---
DATE OF OPERATION: 05/04/2017 PREOPERATIVE DIAGNOSIS: Exhausted left anterior chest draped port. POSTOPERATIVE DIAGNOSIS: Same. SURGEON: Urbano Chavez MD DESCRIPTION OF PROCEDURE: The patient was brought into the operating room and placed in supine position. The area was prepped with Betadine solution and properly draped. Minimal IV sedation and we used local anesthetic 1% Xylocaine with epinephrine to infiltrate along the incision from previous port site. After reaching anesthetic level, deepened through subcutaneous tissue an incision was made onto the pseudocapsule of the port. The anchor sutures were removed and the catheter was pulled completely out holding pressure in the subclavian area. We held pressure there for approximately 5 minutes. The wound was then closed in multiple layer 2-0 and 3-0 Dexon interrupted running fraction of 3-0 nylon. A dressing was applied. The procedure was tolerated well by the patient and was taken to recovery room in good condition. I attest to the content of the Intraoperative Record and any orders documented therein. Any exceptions are noted below. MTDD
[2017-06-29] MEDS ORDERED: MULT-506 PO (09:35)
[2017-06-29] MEDS ORDERED: ACET-1256 PO (09:35)
[2017-06-29] MEDS ORDERED: LACT10CA3 PO (09:35)
[2017-06-29] MEDS ORDERED: OMEG10007 PO (09:35)
[2017-06-29] MEDS ORDERED: METHPOW7 PO (09:36)
[2017-06-29] MEDS ORDERED: MRLP17X PO (09:36)
[2017-06-29] MEDS ORDERED: TRAV0.00 OPR (09:47)
[2017-06-29] MEDS ORDERED: PRLSR20 PO (11:16)
== END 2017-05-04 08:36 | disposition home or self-care (01) ==
LOC: C.ACU 05:11
PROVIDERS: ATTEND Surgery
DX: Z45.2 Encounter for adjustment and management of vascular access device (principal); C18.9 Malignant neoplasm of colon, unspecified; J45.909 Unspecified asthma, uncomplicated; M19.90 Unspecified osteoarthritis, unspecified site; J44.9 Chronic obstructive pulmonary disease, unspecified; K21.0 Gastro-esophageal reflux disease with esophagitis; F32.9 Major depressive disorder, single episode, unspecified; G47.30 Sleep apnea, unspecified; E11.9 Type 2 diabetes mellitus without complications; I10 Essential (primary) hypertension; C20 Malignant neoplasm of rectum; Z83.3 Family history of diabetes mellitus; Z82.49 Family history of ischemic heart disease and other diseases of the circulatory system; Z82.3 Family history of stroke; Z80.49 Family history of malignant neoplasm of other genital organs; Z80.7 Family history of other malignant neoplasms of lymphoid, hematopoietic and related tissues; Z87.891 Personal history of nicotine dependence

== ENCOUNTER → 2017-05-06 | Outpatient (CLI) | payer BC ==
[~2017-05-06] MED LIST changes: +ACET-1256 PO; +ARFO15NE INH; +AZIT500T26 PO; +IMD/2 PO; +IPRASOL4 INH; +LACT10CA3 PO; +METHPOW7 PO; +MRLP17X PO; +MULT-506 PO; +OMEG10007 PO; +POTA10TA PO; +PRD10; +PRLSR20 PO; +TRAV0.00 OPR
== END | disposition home or self-care (01) ==
LOC: C.PAPS 14:14
PROVIDERS: ATTEND Obstetrics & Gynecology
DX: Z01.419 Encounter for gynecological examination (general) (routine) without abnormal findings (principal)

== ENCOUNTER → 2017-06-14 | Outpatient (CLI) | payer BC ==
[2017-06-14 09:55] LABS: BLOOD UREA NITROGEN 26 mg/dl (7-18); CALCIUM 9.1 mg/dl (8.5-10.1); CARBON DIOXIDE 27 mmol/L (21-32); CHLORIDE 109 mmol/L (98-107); CHOLESTEROL 179 mg/dl (0-200); CREATININE 0.87 mg/dl (0.60-1.20); GLUCOSE 98 mg/dl (70-99); POTASSIUM 4.6 mmol/L (3.5-5.1); SODIUM 141 mmol/L (136-145); TRIGLYCERIDES 267 mg/dl (0-150); VERY LOW DENSITY LIPOPROT CALC 53 mg/dl
[2017-06-14 10:09] LABS: CHOLESTEROL/HDL RATIO 4.4; HDL CHOLESTEROL 41 mg/dl; LDL CHOLESTEROL CALCULATED 85 mg/dl
== END | disposition home or self-care (01) ==
LOC: C.LAB 07:06
PROVIDERS: ATTEND Internal Medicine
DX: C18.9 Malignant neoplasm of colon, unspecified (principal); J45.909 Unspecified asthma, uncomplicated; Z13.220 Encounter for screening for lipoid disorders

== ENCOUNTER 2017-06-29 12:48 | Emergency (ER) | payer BC ==
[~2017-06-29] VITALS: Ht 167.6 cm; Wt 83.9 kg
[~2017-06-29 12:48] MED LIST changes: -ARFO15NE INH; -AZIT500T26 PO; -IMD/2 PO; -IPRASOL4 INH; -POTA10TA PO; -PRD10
[2017-06-29 12:50] VITALS: TEMP 36.6; Ht 167.6 cm; Wt 83.9 kg
[2017-06-29] MEDS ORDERED: PRD10 (13:17)
[2017-06-29] MEDS ORDERED: AZIT500T26 PO (13:17)
[2017-06-29] MEDS ORDERED: ARFO15NE INH (13:17)
[2017-06-29] MEDS ORDERED: DIPHTHERIA/TETANUS/PERTUSSIS 0.5 ML SYR/VIAL IM. ONE (13:30)
[2017-06-29] MEDS ORDERED: IMD/2 PO (14:21)
--- NOTE | 2017-06-29 14:34 | DIAGNOSTIC IMAGING REPORT ---
LEFT FOOT MIN 3 VIEWS ROUTINE CLINICAL HISTORY: 62 years-old Female presenting with Fall, left foot pain. TECHNIQUE: Frontal, oblique, and lateral views of the left foot were obtained. COMPARISON: None. FINDINGS: Tiny osseous fragment along the distal lateral aspect of the calcaneus medially proximal to the calcaneocuboid articulation. No other acute fracture or malalignment. Prominent enthesophyte at the inferior calcaneus. IMPRESSION: Tiny osseous fragment at the distal lateral aspect of the calcaneus may represent an avulsion fracture fragment. Further evaluation with CT or MR could be considered as clinically warranted. Electronically signed by: Edmund Nguyễn M.D. 06/29/2017 2:33 PM Dictated Date/Time: 06/29/2017 2:32 PM
--- NOTE | 2017-06-29 14:34 | DIAGNOSTIC IMAGING REPORT ---
RIGHT FOREARM 2 VIEWS CLINICAL HISTORY: Fall with right arm pain. FINDINGS: AP and lateral views of the right forearm are obtained. No prior studies are available for comparison at the time of dictation. Skeletal structures are osteopenic. There is no radiographic evidence of fracture. The wrist and elbow joints are grossly maintained. Mild soft tissue swelling is noted in the distal forearm. IMPRESSION: Osteopenia with no radiographic evidence of right forearm fracture. Electronically signed by: Espinoza Jackson M.D. 06/29/2017 2:33 PM Dictated Date/Time: 06/29/2017 2:32 PM
--- NOTE | 2017-06-29 14:35 | DIAGNOSTIC IMAGING REPORT ---
RIGHT TIBIA/FIBULA 3 VIEWS HISTORY: Fall, right knee and tello pain Right COMPARISON: None. FINDINGS: There is no fracture or dislocation. Soft tissues are unremarkable. No radiopaque foreign bodies. IMPRESSION: No fractures within the right lower leg. Electronically signed by: Alexys Gonsales M.D. 06/29/2017 2:34 PM Dictated Date/Time: 06/29/2017 2:33 PM
--- NOTE | 2017-06-29 14:35 | DIAGNOSTIC IMAGING REPORT ---
LEFT TIBIA/FIBULA 2 VIEWS ROUTINE CLINICAL HISTORY: 62 years-old Female presenting with Fall, left knee and tello pain. TECHNIQUE: Frontal and lateral views of the left lower leg were obtained. COMPARISON: None. FINDINGS: Ankle mortise and knee joint grossly congruent. No acute fracture or malalignment. Regional soft tissues within normal limits. IMPRESSION: No acute osseous injury of the left lower leg. Electronically signed by: Edmund Nguyễn M.D. 06/29/2017 2:34 PM Dictated Date/Time: 06/29/2017 2:33 PM
[2017-06-29] MEDS ORDERED: IPRASOL4 INH (14:38)
--- NOTE | 2017-06-29 14:48 | EMERGENCY ROOM VISIT NOTE ---
ED Visit Note First contact with patient: 13:10 62-year-old female with a fall earlier today was fully evaluated by Rubio Ochoa PA-C. Please see his note. I also independently evaluated the patient. Patient does appear to have a small calcaneus avulsion fracture.
--- NOTE | 2017-06-29 15:02 | EMERGENCY ROOM VISIT NOTE ---
History First contact with patient: 13:10 Chief Complaint: FALL Stated Complaint: FELL, TORN SKIN, BLEEDING, ANKLE PAIN History of Present Illness The patient is a 62 year old female who presents to the Emergency Room via private vehicle with complaints of "fell, torn skin, bleeding, ankle pain". The patient states that just prior to arrival she was exiting a restaurant, when she missed the step going down at the restaurant. She states that she fell injuring her right arm, and left ankle. She rates the overall pain currently as a 10/10. She is unsure if her tetanus is up-to-date. She denies hitting her head or loss of consciousness. Review of Systems A complete 6-point Review of Systems was discussed with the patient, with pertinent positives and negatives listed in the History of Present Illness. All remaining Review of Systems questions can be considered negative unless otherwise specified. Past Medical/Surgical History Medical Problems: (1) Asthma (2) Chronic back pain (3) GERD (gastroesophageal reflux disease) (4) Rectal cancer Family History Depression Diabetes mellitus FHx: cancer FHx: heart disease FHx: lung disease Hypertension Social History Smoking Status: Former Smoker Alcohol Use: occasionally Drug Use: none Marital Status: Housing Status: lives with family Occupation Status: employed Current/Historical Medications Scheduled Acetaminophen (Tylenol), 500-1,000 MG PO PRN Arformoterol Tartrate (Brovana), 15 MCG INH DAILY Azithromycin (Zithromax), 500 MG PO DAILY Fish Oil ([place]-3), 1 CAP PO QAM Lactobacillus-Inulin (Culturelle), 2 TAB PO QAM Methylcellulose (Laxative) (Citrucel Fiber Laxative), 1 DOSE PO QPM Multivitamin (Multivitamin), 1 TAB PO BID Polyethylene (Miralax), 1 DOSE PO QPM Potassium Chloride (K-Tabs), 1 TAB PO BID Travoprost (Travatan Z), 1 DROPS OPR HS Scheduled PRN Ipratropium-Albuterol (Duoneb), 1 TREATMENT INH Q4H PRN for SOB/Wheezing Loperamide Hcl (Imodium), 4 MG PO Q6 PRN for Diarrhea Omeprazole (Prilosec), 20 MG PO DAILY PRN for ACID REFLUX Miscellaneous Medications Prednisone (Prednisone), Unknown Dose Physical Exam Vital Signs Date Time Temp Pulse Resp B/P (MAP) Pulse Ox O2 Delivery O2 Flow Rate FiO2 06/29/17 15:29 76 20 132/78 99 06/29/17 14:44 72 20 127/74 99 Room Air 06/29/17 12:50 36.6 112 20 124/66 97 Room Air Physical Exam VITAL SIGNS - Vital signs and nursing notes were reviewed. Afebrile, normotensive, tachycardic, and is saturating well on room air 97%. GENERAL -62-year-old female appearing her stated age who is in no acute distress. Communicates well with provider and answers questions appropriately. SKIN - there are numerous abrasions noted to the upper and lower extremities. Upon my examination these have been cleansed, and dressed with bacitracin and covered with bandage. HEAD - NC/AT. EYES - PERRL with EOMI bilaterally. Sclera anicteric. Palpebral conjunctiva pink and moist with no injection noted. EARS - No deformities of external structures noted on gross examination bilaterally. No pain elicited with palpation of the tragus bilaterally. External auditory canals without discharge or otorrhea. Tympanic membranes pearly flores without retraction or bulging. No fluid or purulent material visualized behind the TM. Handle of malleus, umbo, cone of light, pars tensa/ flaccid all easily visualized. NOSE - Midline and without cyanosis. No epistaxis or purulent drainage noted. Septum midline without deviation or septal hematoma noted. MOUTH/OROPHARYNX - Without perioral cyanosis. Buccal mucosa pink and moist and without leukoplakia. Tongue midline with equal elevation of palate bilaterally. No tonsillar hypertrophy, erythema, or exudates noted. Fair dentition noted. NECK - Neck with FROM. Supple to palpation. No C-spine tenderness. LUNGS - Chest wall symmetric without accessory muscle use, intercostals retractions, or central cyanosis. Normal vesicular breath sounds CTA B/L. No wheezes, rales, or rhonchi appreciated. CARDIAC - RRR with S1/S2. No murmur, rubs, or gallops appreciated. EXTREMITIES - No clubbing or peripheral cyanosis. No pretibial edema present. Tenderness along the right elbow, right forearm, right knee, left knee and left ankle. She is neurovascularly intact in this region +5/5 strength noted in UE/ LE bilaterally. Medical Decision & Procedures ER Provider Diagnostic Interpretation: LEFT FOOT MIN 3 VIEWS ROUTINE CLINICAL HISTORY: 62 years-old Female presenting with Fall, left foot pain. TECHNIQUE: Frontal, oblique, and lateral views of the left foot were obtained. COMPARISON: None. FINDINGS: Tiny osseous fragment along the distal lateral aspect of the calcaneus medially proximal to the calcaneocuboid articulation. No other acute fracture or malalignment. Prominent enthesophyte at the inferior calcaneus. IMPRESSION: Tiny osseous fragment at the distal lateral aspect of the calcaneus may represent an avulsion fracture fragment. Further evaluation with CT or MR could be considered as clinically warranted. Electronically signed by: Edmund Nguyễn M.D. 06/29/2017 2:33 PM Dictated Date/Time: 06/29/2017 2:32 PM RIGHT FOREARM 2 VIEWS CLINICAL HISTORY: Fall with right arm pain. FINDINGS: AP and lateral views of the right forearm are obtained. No prior studies are available for comparison at the time of dictation. Skeletal structures are osteopenic. There is no radiographic evidence of fracture. The wrist and elbow joints are grossly maintained. Mild soft tissue swelling is noted in the distal forearm. IMPRESSION: Osteopenia with no radiographic evidence of right forearm fracture. Electronically signed by: Espinoza Jackson M.D. 06/29/2017 2:33 PM Dictated Date/Time: 06/29/2017 2:32 PM RIGHT TIBIA/FIBULA 3 VIEWS HISTORY: Fall, right knee and tello pain Right COMPARISON: None. FINDINGS: There is no fracture or dislocation. Soft tissues are unremarkable. No radiopaque foreign bodies. IMPRESSION: No fractures within the right lower leg. Electronically signed by: Alexys Gonsales M.D. 06/29/2017 2:34 PM Dictated Date/Time: 06/29/2017 2:33 PM LEFT TIBIA/FIBULA 2 VIEWS ROUTINE CLINICAL HISTORY: 62 years-old Female presenting with Fall, left knee and tello pain. TECHNIQUE: Frontal and lateral views of the left lower leg were obtained. COMPARISON: None. FINDINGS: Ankle mortise and knee joint grossly congruent. No acute fracture or malalignment. Regional soft tissues within normal limits. IMPRESSION: No acute osseous injury of the left lower leg. Electronically signed by: Edmund Nguyễn M.D. 06/29/2017 2:34 PM Dictated Date/Time: 06/29/2017 2:33 PM Medications Administered Medications (Trade) Dose Ordered Sig/Bernadine Route Start Time Stop Time Status Last Admin Dose Admin Diphtheria/ Pertussis/Tetanus Vacc (Adacel Inj) 0.5 ml ONCE ONCE IM. 06/29/17 13:30 06/29/17 13:31 DC 06/29/17 14:36 0.5 ML Medical Decision Patient was seen and evaluated as above. After obtaining a thorough history and physical examination radiographs were obtained of the affected regions. She presents to us today in a nontoxic state, with most of her pain overlying the left ankle. The nurse caring for the patient cleansed all the wounds and bandaged them with bacitracin and covered with a Band-Aid. These appear to be appropriate. The deepest is overlying the right elbow, and benefits versus risk of closure was discussed with the patient. The decision was made at this time to leave this wound open. I do believe this is reasonable.Were negative except for the left foot. She has a small calcaneal fracture. She'll be fitted with a postop shoe secondary to this being a very tiny avulsion type fracture. I do not believe that any further imaging of this region is necessary. Patient was also seen by my attending physician. She'll remain nonweightbearing with crutches. She is to follow-up with her family doctor regarding today's visit as well as orthopedics. She was educated upon worrisome symptoms which to return, had questions or discharge, and was discharged home in good condition. In the evaluation and treatment of this patient, the following differential diagnoses were considered: Ankle Fracture, Ankle Sprain, Distal Fibula Fracture , Distal Tibia Fracture, Foot Fracture, Maisonneuve Fracture, Patellar Fracture , Tibial Plateau Fracture, Distal Femur Fracture, ACL Injury, PCL Injury, Collateral Ligament Injury, Pes Anserine Bursitis, Maisonneuve Fracture, Wrist Sprain, Wrist Fracture, Wrist Dislocation, Scapholunate Dissociation, Carpal Fracture, Metacarpal Fracture, Radial Styloid Process Fracture, Ulnar Styloid Process Fracture, or Carpal Tunnel Syndrome. Impression Primary Impression: Fall Additional Impressions: Contusion of multiple sites Foot fracture, left Departure Information Dispostion Home / Self-Care Condition GOOD Referrals Lon Ng M.D. (PCP) Ricki Dodd M.D. Patient Instructions My [facility] Additional Instructions You have been treated in the Emergency Department for a fall and associated injuries. [ For pain control, you can use the following ozxs-dli-betvgmo medicines (if >12 yo): - Regular strength (325mg/tab) Tylenol (acetaminophen) 2 tabs every 4-6 hours as needed. Do not exceed 12 tablets in a 24 hour period. Avoid taking more than 3 grams (3000 mg) of Tylenol per day. This includes any other sources of acetaminophen you may take on a regular basis. If this is a recent injury (<24 hrs), ice can be applied to the area of pain for the first 3 days to help decrease pain and inflammation. You have been provided the number for an Orthopaedic Surgeon. You should call this number as soon as possible to establish a follow-up visit from today's Emergency Department visit. Keep the ankle brace/splint in place until cleared by Orthopedics. Use the crutches you have been provided to keep ALL weight off of the ankle until weight bearing is tolerable. Return to the Emergency Department if your current symptoms worsen despite treatment course outlined above, or if you develop any of the following symptoms : intractable pain despite aforementioned treatment course or new onset of numbness or tingling of the foot. Please return to emergency department with any new/concerning symptoms. Problem Qualifiers
[2017-06-29] MEDS ORDERED: POTA10TA PO (15:16)
[2017-06-29 15:29] VITALS: BP 132/78; PULSE 76; O2SAT 99
== END 2017-06-29 15:32 | disposition home or self-care (01) ==
LOC: C.EDB 12:49 → C.EDD 15:32
DX: S92.002A Unspecified fracture of left calcaneus, initial encounter for closed fracture (principal); T14.8 Other injury of unspecified body region; W10.9XXA Fall (on) (from) unspecified stairs and steps, initial encounter; Y92.511 Restaurant or cafe as the place of occurrence of the external cause; J45.909 Unspecified asthma, uncomplicated; G89.29 Other chronic pain; M54.9 Dorsalgia, unspecified; K21.9 Gastro-esophageal reflux disease without esophagitis; Z85.048 Personal history of other malignant neoplasm of rectum, rectosigmoid junction, and anus; Z81.8 Family history of other mental and behavioral disorders; Z83.3 Family history of diabetes mellitus; Z80.9 Family history of malignant neoplasm, unspecified; Z82.49 Family history of ischemic heart disease and other diseases of the circulatory system; Z87.891 Personal history of nicotine dependence; Z79.899 Other long term (current) drug therapy; Z23 Encounter for immunization

== ENCOUNTER → 2017-09-07 | Outpatient (CLI) | payer BC ==
[2016-02-26 13:20] VITALS: BP 80/50; PULSE 75
[~2017-09-07] MED LIST changes: +ARFO15NE INH; -AUGMENTIN PO; +AZIT500T26 PO; -BRVIN NEB; -CALC1CHW57 PO; +IMD/2 PO; +IPRASOL4 INH; -MOUTLIQ83 PO; -NYSCR30 EXT; +POTA10TA PO; +PRD10; -TRMO2580 TOP
[2017-09-07 14:49] VITALS: BP 126/75; PULSE 76; TEMP 37.1; O2SAT 98
--- NOTE | 2017-09-07 16:34 | Radiation Oncology Follow-Up ---
Radiation Oncology Follow-Up Date of Visit Sep 07, 2017. Reason For Visit 6 month follow-up Radiation Completion Date 11/28/15 Diagnosis (1) Rectal cancer Status: Resolved Onset Date: 08/08/2015 Histology Subtype: adenocarcinoma Stage: lll Permanent Comment: DIAGNOSIS: Rectum, adenocarcinoma, uT2N1, stage III Status post completion of combined neoadjuvant radiation and chemotherapy. Radiation completed 11/28/2014 received 5040 cGy Chemotherapy comprised of Xeloda Status post laparoscopic low anterior resection with loop ileostomy 01/13/2016 Stage ypT2 ypN0 M0 Adjuvant intravenous chemotherapy for 1 dose then anaphylactic reaction Adjuvant chemotherapy with Xeloda 6 cycles Status post ostomy reversal 09/07/2016 Last Edited By: Arabella Collier on Sep 07, 2017 16:29 Interim History She's been doing well over the past 6 months. its. Bowel movements occur promptly 6 times per day. This is improved compared to her last visit. She was having 10 bowel movements per day. She is using citracil, mirilax, and Imodium to control her bowels. She is not had any difficulty with antonio-anal irritation. She did note some vaginal narrowing when she and her attempted intercourse. 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 She is scheduled for recheck scanning next week. Her appetite is good and weight is stable. Allergies Coded Allergies: Levofloxacin (Verified Allergy, Severe, SHORTNESS OF BREATH, 06/29/17) Oxaliplatin (Verified Allergy, Severe, ANAPHYLAXIS, 06/29/17) Dust (Verified Allergy, Intermediate, SNEEZING, RUNNY NOSE, ITCHY EYES., ) Molds and Smuts (Verified Allergy, Intermediate, RUNNY NOSE, ITCHY EYES, SNEEZING, 06/29/17) Sulfa Antibiotics (Verified Allergy, Mild, HIVES,ITCHY, 06/29/17) Codeine (Verified Adverse Reaction, Mild, NAUSEA, 06/29/17) Morphine and Related (Verified Adverse Reaction, Mild, nausea, 06/29/17) Moxifloxacin (Verified Adverse Reaction, Unknown, "I GET DIZZY.", 06/29/17) Home Medications Scheduled Acetaminophen (Tylenol), 500-1,000 MG PO PRN Arformoterol Tartrate (Brovana), 15 MCG INH DAILY Fish Oil ([place]-3), 1 CAP PO QAM Lactobacillus-Inulin (Culturelle), 2 TAB PO QAM Methylcellulose (Laxative) (Citrucel Fiber Laxative), 1 DOSE PO QPM Multivitamin (Multivitamin), 1 TAB PO BID Polyethylene (Miralax), 1 DOSE PO QPM Potassium Chloride (K-Tabs), 1 TAB PO BID Travoprost (Travatan Z), 1 DROPS OPR HS Scheduled PRN Ipratropium-Albuterol (Duoneb), 1 TREATMENT INH Q4H PRN for SOB/Wheezing Loperamide Hcl (Imodium), 4 MG PO Q6 PRN for Diarrhea Omeprazole (Prilosec), 20 MG PO DAILY PRN for ACID REFLUX Review of Systems Gastrointestinal: Symptoms: Ostomy GI Comments: Takes citrucel and miralax daily;Immodium usually QID;IBS; Oral: Symptoms: No Problems Other Oral Symptoms: 2 stools/day;BM consistency easily affected by diet intake; Respiratory: Symptoms: Dry Cough, SOB With Exertion Sputum Character: Yellowish-green sputum;on antibiotics currently; Other Respiratory: SOB w/exertion and dry cough related to COPD Urinary: Symptoms: WNL Skin: Symptoms: No Problems Other Skin Symptoms: Denies any perirectal irritation;uses Huggie wipes; Aquaphor daily Physical Exam Vital Signs Date Time Temp Pulse Resp B/P (MAP) Pulse Ox O2 Delivery O2 Flow Rate FiO2 09/07/17 14:49 37.1 76 12 126/75 98 Pain: Pain Location: None Patient Pain Scale: 0 - 10 Initial Pain Intensity: 0.0 Fatigue: None General Appearance: no apparent distress Eyes: normal inspection, EOMI ENT: normal ENT inspection, hearing grossly normal Respiratory/Chest: lungs clear, no respiratory distress, no accessory muscle use Cardiovascular: regular rate, rhythm, no gallop, no murmur Abdomen: non tender, soft, no organomegaly Extremities: no pedal edema Neurologic/Psychiatric: no motor/sensory deficits, alert, normal mood/affect Skin: warm/dry Laboratory Studies Test 06/14/17 07:12 Sodium Level 141 mmol/L (136-145) Potassium Level 4.6 mmol/L (3.5-5.1) Chloride Level 109 mmol/L (98-107) Carbon Dioxide Level 27 mmol/L (21-32) Anion Gap 5.0 mmol/L (3-11) Blood Urea Nitrogen 26 mg/dl (7-18) Creatinine 0.87 mg/dl (0.60-1.20) Estimated GFR () 83.3 Estimated GFR (Non- 71.9 BUN/Creatinine Ratio 30.0 (10-20) Random Glucose 98 mg/dl (70-99) Calcium Level 9.1 mg/dl (8.5-10.1) Triglycerides Level 267 mg/dl (0-150) Cholesterol Level 179 mg/dl (0-200) HDL Cholesterol 41 mg/dl LDL Cholesterol, Calculated 85 mg/dl VLDL Cholesterol, Calculated 53 mg/dl Cholesterol/HDL Ratio 4.4 Thyroid Stimulating Hormone (TSH) 2.150 uIu/ml (0.300-4.500) Assessment & Plan Patient was seen and examined by Dr. Ma. She'll continue regular follow-up with her primary care provider. She is seeing Dr. Henderson in November. She is scheduled for a colonoscopy with Dr. Amaral in December 2017. She'll have a recheck CT scans next week and follow-up with medical oncology. We asked her to return to our office in 1 year. She may call she has any questions or concerns in the interim. Assessment & Plan (Attending) ADDENDUM: I agree with note created by Arabella Collier PA-C. I reviewed the patient's chart and information with her. I have examined and evaluated the patient. I reviewed relevant clinical information and answered the patient's and /or family's questions. PRINT SHOP MANAGER Total Time In Follow-Up I spent 20 minutes speaking to the patient performing examination. I spent 15 minutes reviewing information in completing this note. A K Total Time (Attending) In Follow-Up I spent 15 minutes examining and counseling the patient. PRINT SHOP MANAGER Copy To Casey Powell D.O.; Anant Amaral M.D.; Monika Henderson M.D.; Lon Smith M.D.
== END | disposition home or self-care (01) ==
LOC: C.ONC 14:39
PROVIDERS: ATTEND Physician Assistant Medical
DX: Z08 Encounter for follow-up examination after completed treatment for malignant neoplasm (principal); Z92.3 Personal history of irradiation; Z85.048 Personal history of other malignant neoplasm of rectum, rectosigmoid junction, and anus

== ENCOUNTER → 2017-10-27 | Outpatient (CLI) | payer BC ==
[~2017-10-27] MED LIST changes: -AZIT500T26 PO; -PRD10
[2017-10-27 14:56] LABS: URINE APPEARANCE CLEAR (CLEAR); URINE BILIRUBIN NEG (NEG); URINE COLOR YELLOW; URINE EPITHELIAL CELL AUTO 0-5 /lpf (0-5); URINE NITRITE NEG (NEG); URINE PH 6.5 (4.5-7.5); URINE SPECIFIC GRAVITY 1.014 (1.000-1.030); UROBILINOGEN NEG (NEG); ZZUR CULT IF INDIC CLEAN CATCH NO
[2017-10-27 14:59] LABS: MANUAL MICROSCOPIC REQUIRED? NO; REVIEW REQ? NO
== END | disposition home or self-care (01) ==
LOC: C.LAB 13:01
PROVIDERS: ATTEND Internal Medicine
DX: R39.9 Unspecified symptoms and signs involving the genitourinary system (principal)

== ENCOUNTER → 2017-11-03 | Outpatient (CLI) | payer BC ==
[~2017-11-03] MED LIST changes: +ALBU18002 INH; -ARFO15NE INH; +ARFO15NE NEB; +AZIT500T26 PO; +CALC500C70 PO; +CEFU1TAB35 PO; +FEXO3TAB PO; +FLUT0.15 NAE; +IPRA-64 INH; -IPRASOL4 INH; +POTA-65 PO; +PRED50TA PO; +[UNRECOGNIZED DRUG - OTHER] PO
--- NOTE | 2017-11-03 10:32 | DIAGNOSTIC IMAGING REPORT ---
PET/CT SKULL-THIGH CLINICAL HISTORY: 62 years-old Female presenting with PULMONARY NODULE, history of colon cancer diagnosed in 2014 now status post surgery with ostomy reversal. TECHNIQUE: PET/CT was performed from the base of the skull through the proximal thighs following the intravenous administration of 13.756 mCi of F18-FDG. Blood glucose level 91 mg/dL. The injection was performed at 8:30 AM and imaging began at 9:[address] was performed for attenuation correction purposes and anatomic localization. COMPARISON: 09/30/[address] from 09/15/2017. CT DOSE (mGy.cm): The estimated cumulative dose is 969.17. FINDINGS: Head and neck: No FDG-avid mass in the visualized portion of the head or neck. No FDG avid or enlarged lymph nodes in the neck. Chest: 8 mm solid pulmonary nodule in the right lower lobe (series 2 image 84). This is minimally FDG avid (max SUV 0.93 in comparison to normal lung parenchyma with a max SUV of 0.66). No axillary, supraclavicular, or mediastinal lymphadenopathy. Evaluation of the darren limited without intravenous contrast. Atherosclerosis of the aorta. Coronary artery calcification. Normal heart size. No pericardial or pleural effusion. No focal infiltrate or nodule. Airways patent. Abdomen and pelvis: Normal physiologic distribution of radiotracer in the gastrointestinal and genitourinary tracts. An anastomotic suture line is noted in the low rectum. Moderate stool burden throughout normal caliber colon. A second anastomotic suture line is noted in the small bowel in the right mid abdomen. No bowel obstruction. No FDG avid lymphadenopathy or mass lesion. Well-defined hypodensity in the left hepatic lobe likely hepatic cyst. Cholecystectomy clips noted. Postsurgical changes of the anterior abdominal wall. Calcified uterine fibroid. Musculoskeletal: Degenerative changes of the spine. No destructive osseous lesion or suspicious focal FDG avidity. IMPRESSION: 1. Follow-up PET/CT demonstrates a minimally FDG avid solid pulmonary nodule in the right lower lobe. This is at the lower limits of reliable resolution on PET. Allowing for this, the minimal degree of FDG avidity is more suggestive of a benign focus. Continued follow-up recommended. Electronically signed by: Edmund Nguyễn M.D. 11/03/2017 10:31 AM Dictated Date/Time: 11/03/2017 10:18 AM
== END | disposition home or self-care (01) ==
LOC: C.PET 08:12
PROVIDERS: ATTEND Internal Medicine Pulmonary Disease
DX: R91.1 Solitary pulmonary nodule (principal); Z85.038 Personal history of other malignant neoplasm of large intestine

== ENCOUNTER 2017-11-24 09:52 | Inpatient (IN) | payer BC ==
[2017-11-15 15:49] VITALS: Ht 168.9 cm; Wt 85.5 kg
[2017-11-24] VITALS (9 sets, daily range): BP systolic 94–129; BP diastolic 57–83; PULSE 72–93; TEMP 36.4–36.9; O2SAT 92–100
[~2017-11-24] VITALS: Ht 168.9 cm; Wt 85.5 kg
[~2017-11-24 09:52] MED LIST changes: -ALBU18002 INH; -AZIT500T26 PO; -CEFU1TAB35 PO; +DEXAMETHASONE SOD INJ 4 MG/ML VIAL ONE; +FENTANYL CITRATE INJ 50 MCG/1 ML 2 ML VIAL ONE; -FEXO3TAB PO; -IPRA-64 INH; +IPRASOL4 INH; +LACTATED RINGER'S 1000ML 1,000 ML IV SCH; +LIDOCAINE HCL 2% 2 ML VIAL (20MG/ML) ONE; +MIDAZOLAM HCL 1 MG/ML 2ML VIAL ONE; +ONDANSETRON INJ 2 MG/ML 2 ML VIAL ONE; -POTA10TA PO; -PRED50TA PO; +PROPOFOL IV EMULSION 10 MG/ML 20 ML VIAL IV ONE; +ROCURONIUM BROMIDE 10 MG/ML 5 ML VIAL IV ONE
[2017-11-24] MEDS ORDERED: BUPIVACAINE LIPOSOME 1/3% 266 MG/20 ML VIAL INFIL ONE (10:19)
[2017-11-24] MEDS ORDERED: SODIUM CHLORIDE 0.9% PF 50 ML VIAL ONE (10:19)
[2017-11-24] MEDS ORDERED: FEXO3TAB PO (10:21)
--- NOTE | 2017-11-24 10:26 | History & Physical Bridge Note ---
H&P Re-Evaluation Bridge Note: I have examined the patient, reviewed the History & Physical and in the interval since the performance of the History & Physical I have noted the following changes of clinical significance: No changes noted
[2017-11-24] MEDS ORDERED: HYDROmorphone INJ 1 MG/ML SYR IV PRN (10:30)
[2017-11-24] MEDS ORDERED: FENTANYL CITRATE INJ 50 MCG/1 ML 2 ML VIAL IV PRN (10:30)
[2017-11-24] MEDS ORDERED: EpHEDrine SULFATE INJ 50 MG/ML AMP IV PRN (10:30)
[2017-11-24] MEDS ORDERED: ATROPINE SULFATE 0.1 MG/ML 5ML SYR IV PRN (10:30)
[2017-11-24] MEDS ORDERED: ONDANSETRON INJ 2 MG/ML 2 ML VIAL IV PRN ×2 (10:30→15:45)
[2017-11-24] MEDS ORDERED: OXYMETAZOLINE HCL 0.05% NA SPR 15 ML BTL ONE (11:03)
[2017-11-24] MEDS ORDERED: CEFAZOLIN SOD 1 GM VIAL ONE ×2 (12:05→12:12)
[2017-11-24] MEDS ORDERED: ROCURONIUM BROMIDE 10 MG/ML 5 ML VIAL IV ONE ×9 (12:12→14:44)
[2017-11-24] MEDS ORDERED: EpHEDrine SULFATE 50MG/5ML SYR ONE (12:21)
[2017-11-24] MEDS ORDERED: SURGICEL ABSORB HEMOSTAT 2IN X 14IN TOP ONE ×2 (13:22→15:02)
[2017-11-24] MEDS ORDERED: ONDANSETRON INJ 2 MG/ML 2 ML VIAL ONE (15:05)
[2017-11-24] MEDS ORDERED: DEXAMETHASONE SOD INJ 4 MG/ML VIAL ONE ×2 (15:05)
[2017-11-24] MEDS ORDERED: GLYCOPYRROLATE INJ 0.2 MG/ML VIAL ONE (15:19)
[2017-11-24] MEDS ORDERED: NEOSTIGMINE METHYLSULFATE 5 MG/5 ML SYR ONE (15:19)
[2017-11-24] MEDS ORDERED: OXYCODONE HCL IR 5 MG TAB (IMMEDIATE RELEASE) PO PRN ×2 (15:45→23:45)
[2017-11-24] MEDS ORDERED: MoRPHine SULFATE 2 MG/ML CARP IV PRN (15:45)
[2017-11-24] MEDS ORDERED: ALBUT/IPRATROP 3MG/0.5MG NEB 3 ML VIAL INH PRN (15:45)
[2017-11-24] MEDS ORDERED: FENTANYL CITRATE INJ 50 MCG/1 ML 2 ML VIAL ONE (15:51)
[2017-11-24] MEDS ORDERED: HYDROmorphone INJ 1 MG/ML SYR ONE (15:51)
--- NOTE | 2017-11-24 16:00 | DIAGNOSTIC IMAGING REPORT ---
CHEST ONE VIEW PORTABLE CLINICAL HISTORY: RLL postoperative COMPARISON STUDY: 07/05/2016 FINDINGS: Right hemithoracic chest tube. Potential subdiaphragmatic free air. No significant pneumothorax. Left lung shows slight basilar interstitial prominence of the left but is otherwise unremarkable. IMPRESSION: Right chest tube in position with no evidence for an apical pneumothorax. 2. Potential subdiaphragmatic free air on the right versus a small subpleural pneumothorax and or atelectasis. The above report was generated using voice recognition software. It may contain grammatical, syntax or spelling errors. Electronically signed by: Brent Villalobos M.D. 11/24/2017 3:59 PM Dictated Date/Time: 11/24/2017 3:58 PM
[2017-11-24] MEDS ORDERED: PROMETHAZINE HCL INJ 12.5 MG in SODIUM CHLORIDE 0.9% 50ML 50 ML IV PRN (16:15)
--- NOTE | 2017-11-24 16:42 | Anesthesiology Progress Note ---
Anesthesia Post Op Note Date & Time Nov 24, 2017 at 16:42 Vital Signs Pain Intensity: 5 Vital Signs Past 12 Hours Date Time Temp Pulse Resp B/P (MAP) Pulse Ox O2 Delivery O2 Flow Rate FiO2 11/24/17 16:30 83 16 111/58 99 Nasal Cannula 2 11/24/17 16:20 85 16 108/62 100 Nasal Cannula 2 11/24/17 16:10 83 16 108/62 100 Oxymask 10 11/24/17 16:00 78 16 92/59 100 Oxymask 10 11/24/17 15:50 86 16 107/61 100 Oxymask 10 11/24/17 15:43 36.0 89 16 105/54 100 Oxymask 10 11/24/17 10:35 36.7 72 18 125/64 92 Room Air Notes Mental Status: alert / awake / arousable, participated in evaluation Pt Amnestic to Procedure: Yes Nausea / Vomiting: adequately controlled Pain: adequately controlled Airway Patency, RR, SpO2: stable & adequate BP & HR: stable & adequate Hydration State: stable & adequate Anesthetic Complications: no major complications apparent
--- NOTE | 2017-11-24 17:07 | [facility] Post Operative Brief Note ---
Immediate Operative Summary Operative Date Nov 24, 2017. Pre-Operative Diagnosis Right lung nodule Post-Operative Diagnosis Same Procedure(s) Performed Right Robotic Assisted Thoracoscopy with Right Lower Lobe Wedge Resection, Right Lower Lobectomy with Mediastinal Lymphadenectomy Surgeon Dr Jiménez Drafter Civil Engineering Surgeon(s) Sam Cox PA-C Estimated Blood Loss 75 mL Findings Adenocarcinoma right lower lobe Specimens Frozen section #1 right lower lobe nodule for diagnosis sent out at [address] Jiménez of results Frozen Section #2. Right lower lobe, check bronchial margins Sent to lab at 1514, carried by OR aide. Fresh Specimens A. medial segment right lower lobe B. R9 lymph node C. R8 lymph node D. Level 7 lymph node (multiple) E. R11 lymph node F. R12 lymph node x3 G. R2 and R4 lymph node H. R4 lymph node x3 I. R2 lymph node Complication(s) None Disposition Recovery Room / PACU
--- NOTE | 2017-11-24 19:16 | OPERATIVE REPORT ---
DATE OF OPERATION: 11/24/2017 PREOPERATIVE DIAGNOSES: 1. Enlarging mass, right lower lobe: 2. History of colon cancer. POSTOPERATIVE DIAGNOSIS: Adenocarcinoma, right lower lobe. PROCEDURE: 1. Robot-assisted thoracoscopic wedge resection, right lower lobe mass. 2. Robot-assisted thoracoscopic lobectomy. 3. Robot-assisted Thoracoscopic mediastinal lymphadenectomy. SURGEON: Dr. Jiménez. MIXED CROP AND LIVESTOCK FARMER: ELLEN Gordon. ( Kenny was present for the entire case and he was at the bedside while I was at the console. He was instrumental in passing instruments and first assisting and closed the incisions at the end). ANESTHESIA: General anesthesia with endotracheal intubation. SPECIFICS OF PROCEDURE AND FINDINGS: Ms. Mcnulty is a very nice 62-year-old female with a history of smoking and colon cancer who developed a mass, was very small in her right lower lobe but it had enlarged. I saw her and we felt that a wedge resection of this should be offered. I explained to the patient that we could do a frozen section; however, if it showed a colon carcinoma, I would not know if this was metastatic or primary. Given her good lung function and the fact we were able to offer her a right lower lobectomy, if this indeed was an adenocarcinoma. The patient tolerated the procedure well, but she did have a wedge resection indeed on the frozen section was an adenocarcinoma. We proceeded with an uncomplicated right lower lobectomy with a mediastinal lymphadenectomy. Margins were negative. She tolerated it well with very small air leak at the conclusion of the case. Blood loss was negligible. DESCRIPTION OF PROCEDURE: The patient brought to the operating room and laid in supine position. General anesthesia induced and endotracheal intubation was performed with a double lumen tube. After appropriate monitoring lines and tubes have been placed, the patient was laid in the left lateral decubitus position and prepped and draped in usual sterile fashion. After appropriate timeout had been called and preoperative antibiotics have been given, an incision was made in the eighth interspace anteriorly just above the costal margin. This was done with a 5 mm port and carbon dioxide was infused. We were able to see that we were indeed in the pleural cavity. A 5-mm 0-degree scope was placed and we could see there were no adhesions. We then placed a 5 mm port with an 8 mm port. Put a 12 mm camera port and another 8 mm port, a bit more posteriorly and then a 5 mm port most posteriorly, most of these in the eighth interspace. We placed an media center assistant's port between the medial and porting camera port anteriorly. This was a 15 mm port just above the diaphragm. The right lower lobe was closely inspected and after several minutes, I came upon the mass. I had to divide the fissure anteriorly between the middle lobe and the lower lobe a bit far I was able to get a wedge resection of this mass. Frozen section showed this indeed was an adenocarcinoma. We elected to proceed with a lobectomy. I also resected a large portion of the lower lobe and did not feel a mass in this prior to this and I simply sent this down for permanent and did not send it off for a frozen. While waiting for frozen section, the lung was retracted anteriorly and I took down the inferior pulmonary ligament, came up and biopsied level 8 and level 9 nodes, level 7 and level 11 and 12 nodes. We dissected this out quite nicely all the way up to the azygos vein. The frozen section came back as adenocarcinoma. This is to proceed with a resection. I then freed up the artery and the fissure that I was able to identify quite nicely. I then went anterior to the artery and then dove posteriorly and I was able to free up enough room and placed an Endo-RENARD stapler to complete the posterior fissure. This freed up things quite nicely. I had identified the pulmonary vein and I dissected it quite well posteriorly doing my lymph node dissection. I was then able to divide the artery without difficulty as we had freed this up nicely. I did this just below the takeoff the middle lobe branches. I also identified the posterior ascending branch to the upper lobe and care was taken to avoid injury to this. An Endo-RENARD stapler was fired across the artery. This freed up the bronchus quite nicely and I was able to get around the bronchus; however, I then went ahead and freed up anteriorly and a bit more superiorly in the medial aspect and then firing an Endo-RENARD stapler across the vein. This freed up nicely and I was able to fire the Endo-RENARD stapler across the bronchus. I then dissected out the level 2 and level 4 nodes and a lymph node packet. There was very little in the way of bleeding. The lung expanded nicely when ventilation resumed. I really did not see much of an air leak anywhere. An Endobag was used to collect the lower lobe. I had to enlarge the media center assistant's port site a bit more in order to get the lung out. The frozen section of the bronchial margin showed no evidence of spread. A 24-Latvian chest tube was placed through the anterior most thoracoscopy port and directed towards the apex and sutured in place with heavy silk suture. 0 Vicryl was used to close the muscle layers of the 8 mm ports as well as the 12 and the 15 mm port. 4-0 Monocryl was used in running subcuticular fashion to approximate the wound edges and heavy silk suture was used to anchor the chest tube in place. There was negligible air leak at the conclusion of the case and x-ray looked quite good. She tolerated it well and was extubated in the room after antimicrobial dressings in place. I attest to the content of the Intraoperative Record and any orders documented therein. Any exception s are noted below.
[2017-11-24] MEDS ORDERED: COUGH DROP (SUGAR FREE) LOZ 24 LOZ/1 BOX ONE (19:29)
[2017-11-24] MEDS ORDERED: NURSING VERBAL MED ORDER ONE ×2 (20:15)
[2017-11-24] MEDS: DOCUSATE SODIUM 100 MG CAP PO SCH (20:48)
[2017-11-24] MEDS: MULTIVITAMIN TAB PO SCH (20:48)
[2017-11-24] MEDS: LACTOBACILLUS ACIDOPHILUS (FLORANEX) TAB PO SCH (20:48)
[2017-11-24] MEDS: METHYLCELLULOSE POWDER 454 GM JAR PO SCH (20:49)
[2017-11-24] MEDS: CEFAZOLIN IV 2,000 MG in SYRINGE 0 ML IV SCH (21:00)
[2017-11-24] MEDS ORDERED: [UNRECOGNIZED DRUG - OTHER] PO SCH (21:00)
[2017-11-24] MEDS: KETOROLAC TROMETHAMINE 15 MG/ML VIAL IV. SCH (21:00)
[2017-11-24] MEDS: ACETAMINOPHEN IV 1,000 MG in EMPTY BAG 0 ML IV SCH (21:04)
[2017-11-24] MEDS: ARFORMOTEROL TART 15MCG/2ML VIAL INH SCH (21:09)
[2017-11-24] MEDS ORDERED: KETOROLAC TROMETHAMINE 15 MG/ML VIAL IV. SCH (22:00)
[2017-11-24] MEDS: D5W AND 1/2NSS 1,000 ML IV SCH (22:04)
[2017-11-24] MEDS: METOCLOPRAMIDE HCL INJ 5 MG/ML 2 ML VIAL IV. SCH (22:05)
[2017-11-24] MEDS: TRAVOPROST Z 0.004% OPH SOLN 2.5 ML BTL OPR SCH (22:25)
[2017-11-25] VITALS (9 sets, daily range): BP systolic 97–138; BP diastolic 55–80; PULSE 68–86; TEMP 36.7–37; O2SAT 96–100
[2017-11-25] MEDS: CEFAZOLIN IV 2,000 MG in SYRINGE 0 ML IV SCH (04:03)
[2017-11-25] MEDS: LOPERAMIDE HCL 2 MG CAP PO PRN ×3 (04:04→10:50)
[2017-11-25] MEDS: KETOROLAC TROMETHAMINE 15 MG/ML VIAL IV. SCH ×3 (05:08→21:05)
[2017-11-25] MEDS: METOCLOPRAMIDE HCL INJ 5 MG/ML 2 ML VIAL IV. SCH ×2 (05:08→13:18)
[2017-11-25] MEDS: ACETAMINOPHEN IV 1,000 MG in EMPTY BAG 0 ML IV SCH (05:09)
[2017-11-25] MEDS: D5W AND 1/2NSS 1,000 ML IV SCH (05:09)
[2017-11-25 06:49] LABS: EOS % 0.2 %; EOS ABS # 0.02 K/uL (0-0.5); HEMATOCRIT 31.6 % (37-47); HEMOGLOBIN 10.9 g/dL (12.0-16.0); IG# 0.04 K/uL (0.00-0.02); LYMPH % 9.8 %; MEAN CELL VOLUME 83.4 fL (80-100); MEAN CORPUSCULAR HEMOGLOBIN 28.8 pg (25-34); MEAN CORPUSCULAR HGB CONC 34.5 g/dl (32-36); MEAN PLATELET VOLUME 8.9 fL (7.4-10.4); MONO % 8.5 %; MONO ABS # 0.87 K/uL (0.11-0.59); NEUT % 81.1 %; NEUT ABS # 8.31 K/uL (1.4-6.5); PLATELET COUNT 212 K/uL (130-400); RED CELL DISTRIBUTION WIDTH CV 14.2 % (11.5-14.5); RED CELL DISTRIBUTION WIDTH SD 43.1 fL (36.4-46.3); WHITE BLOOD COUNT 10.24 K/uL (4.8-10.8)
[2017-11-25] MEDS: ARFORMOTEROL TART 15MCG/2ML VIAL INH SCH ×2 (07:09→18:33)
--- NOTE | 2017-11-25 07:17 | DIAGNOSTIC IMAGING REPORT ---
CHEST ONE VIEW PORTABLE HISTORY: 62 years-old Female RLL acute right lower lobe pneumonia. COMPARISON: Chest radiograph 11/24/2017, PET CT 11/03/2017 TECHNIQUE: Portable AP view of the chest FINDINGS: Right-sided chest tube is present with distal tip overlying the right hilar region. Moderate subcutaneous emphysema of the right lateral chest wall has progressed from comparison study on 11/24/2017. [id number] right-sided pneumothorax with pleural separation of 5.5 cm at the lung apex. Linear line at the left lung apex suggests probable skinfold. Patchy right basilar opacities are noted. Cardiac silhouette is within normal limits. Bones appear to be grossly intact. IMPRESSION: 1. Pgppe-qv-xugksuso right-sided pneumothorax with increased amount of subcutaneous emphysema along the right chest wall. This is concerning for possible chest tube malfunction. 2. Patchy subsegmental right basilar opacities suggest atelectasis or pneumonia. The above report was generated using voice recognition software. It may contain grammatical, syntax or spelling errors. Electronically signed by: Dani Cleaning M.D. 11/25/2017 7:16 AM Dictated Date/Time: 11/25/2017 7:11 AM
[2017-11-25 07:26] LABS: CALCIUM 8.3 mg/dl (8.5-10.1); CREATININE 0.91 mg/dl (0.60-1.20); POTASSIUM 3.5 mmol/L (3.5-5.1)
[2017-11-25] MEDS: POLYETHYLENE (MIRALAX) 17 GM PACK PO SCH (08:16)
[2017-11-25] MEDS ORDERED: NURSING VERBAL MED ORDER ONE ×2 (08:30→19:15)
--- NOTE | 2017-11-25 08:30 | SURGERY PROGRESS NOTE ---
DATE: 11/25/2017 DATE: 11/25/2017 Ms. Mcnulty was seen today 1 day status post thoracoscopic right lower lobectomy with mediastinal lymphadenectomy for an adenocarcinoma. The patient did very well and has done very well except for a few issues. For one she still has an air leak. It is not large, but it is persistent. I am concerned because the patient has a history of colorectal surgery in the past and has had diarrhea more or less continuously. She uses Imodium at home and we have started that. This started a few hours ago. She has been ambulating in the hallway. She is on room air. She has not drained very much from her chest tube but she does have an air leak. Her lungs sound great. She is regular rate and rhythm of her heart. She has no peripheral edema. She is making urine. DATA: Her labs look quite good. The sodium is 133. We are going to stop her IV fluid today. I reviewed her x-ray and radiology is calling this a large pneumothorax. I would tend not to agree with that. I think her x-ray looks quite good actually. She has no infiltrates, no fluid. ASSESSMENT AND PLAN: Postoperative day #1 status post robotic video-assisted thoracoscopic right lower lobectomy with mediastinal lymphadenectomy for an adenocarcinoma. It is still unclear whether we are dealing with metastatic disease or primary. We will have to wait for immunohistochemical stains to see. At this point, I am more concerned about her diarrhea. We are going to continue her Imodium every 4 hours. She has also asked for over the counter Culturelle. She may have to get someone to bring that in from home.
[2017-11-25] MEDS: DOCUSATE SODIUM 100 MG CAP PO SCH ×2 (08:49→21:00)
[2017-11-25] MEDS: FLUTICASONE PROPIONATE NA SPR 16 GM BTL NAE SCH (08:49)
[2017-11-25] MEDS: FEXOFENADINE HCL 180 MG TAB PO SCH (08:49)
[2017-11-25] MEDS: CALCIUM 600MG + VIT D 400 IU TAB PO SCH (08:50)
[2017-11-25] MEDS: POTASSIUM CHLORIDE 20 MEQ TABCR PO SCH (08:50)
[2017-11-25] MEDS: MULTIVITAMIN TAB PO SCH ×2 (08:50→21:05)
[2017-11-25] MEDS: LACTOBACILLUS ACIDOPHILUS (FLORANEX) TAB PO SCH ×2 (08:50→18:16)
[2017-11-25] MEDS: ENOXAPARIN 40 MG/0.4 ML SYR SQ SCH (09:00)
--- NOTE | 2017-11-25 10:48 | Anesthesiology Progress Note ---
Anesthesia Post Op Note Date & Time Nov 25, 2017 at 10:47 Vital Signs Vital Signs Past 12 Hours Date Time Temp Pulse Resp B/P (MAP) Pulse Ox O2 Delivery O2 Flow Rate FiO2 11/25/17 09:22 36.7 79 19 127/73 (91) 98 Room Air 11/25/17 07:25 Room Air 11/25/17 07:13 86 16 97 Room Air 11/25/17 07:00 36.7 75 19 124/69 (87) 100 Room Air 11/25/17 05:30 36.9 68 16 121/74 (90) 96 Room Air 11/25/17 03:30 37.0 76 15 103/61 (75) 99 Room Air 11/25/17 01:30 36.8 79 15 97/55 (69) 98 Room Air 11/24/17 23:30 Room Air 11/24/17 23:25 36.9 80 16 94/57 (69) 97 Room Air Notes Mental Status: alert / awake / arousable, participated in evaluation Pt Amnestic to Procedure: Yes Nausea / Vomiting: adequately controlled Pain: adequately controlled Airway Patency, RR, SpO2: stable & adequate BP & HR: stable & adequate Hydration State: stable & adequate Anesthetic Complications: no major complications apparent
[2017-11-25] MEDS: ACETAMINOPHEN 325 MG TAB PO SCH ×2 (12:17→18:16)
[2017-11-25] MEDS ORDERED: NURSING DECISION MEDICATION ORDER SCH (12:45)
[2017-11-25] MEDS ORDERED: SODIUM CHLORIDE 0.65% NA SOLN 45 ML (OCEAN) PRN (13:00)
[2017-11-25] MEDS: METHYLCELLULOSE POWDER 454 GM JAR PO SCH (16:38)
[2017-11-25] MEDS ORDERED: CALCIUM CARBONATE 500 MG CHEWABLE PO PRN (19:30)
[2017-11-25] MEDS: GUAIFENESIN 600 MG TABCR PO PRN (21:05)
[2017-11-25] MEDS: TRAVOPROST Z 0.004% OPH SOLN 2.5 ML BTL OPR SCH (22:05)
[2017-11-26] VITALS (7 sets, daily range): BP systolic 97–117; BP diastolic 59–72; PULSE 67–87; TEMP 36.6–37; O2SAT 92–99
[2017-11-26] MEDS: ACETAMINOPHEN 325 MG TAB PO SCH ×4 (00:05→18:28)
[2017-11-26] MEDS: KETOROLAC TROMETHAMINE 15 MG/ML VIAL IV. SCH ×2 (04:45→10:51)
[2017-11-26] MEDS: ARFORMOTEROL TART 15MCG/2ML VIAL INH SCH ×2 (07:07→20:00)
--- NOTE | 2017-11-26 07:35 | DIAGNOSTIC IMAGING REPORT ---
CHEST ONE VIEW PORTABLE CLINICAL HISTORY: RLL pain. Edema. COMPARISON STUDY: 11/25/2017 FINDINGS: Right apical pneumothorax perhaps slightly diminished in volume from the prior study. Maximum pleural separation of 4.6 cm. Right-sided chest tube is similar. Subcutaneous emphysematous changes unaltered. Left lung is clear. IMPRESSION: Right apical pneumothorax slightly diminished in volume from the prior study. Stable postoperative change right hemithorax. The above report was generated using voice recognition software. It may contain grammatical, syntax or spelling errors. Electronically signed by: Brent Villalobos M.D. 11/26/2017 7:33 AM Dictated Date/Time: 11/26/2017 7:33 AM
--- NOTE | 2017-11-26 08:39 | SURGERY PROGRESS NOTE ---
DATE: 11/26/2017 Ms. Mcnulty is now 2 days status post a robotic-assisted thoracoscopic right lower lobectomy for a nonsmall cell lung carcinoma. Final pathology is not out. She still has an air leak, although smaller than yesterday. She is on room air with good saturations. She is ambulating in the hallway. Her diarrhea has resolved. She put out about 600 mL yesterday, but this is slowed and she has serous drainage. Her labs from yesterday looked quite good. She sounds better to me, although she still has some rhonchi on the right. Her pain is very well controlled. ASSESSMENT AND PLAN: Postoperative day 2 status post robot-assisted thoracoscopic right lower lobectomy with mediastinal lymphadenectomy. She still has an air leak. The chest tube will have to be in for at least another [address] Chavez will be covering for the weekend. I had a long discussion with the patient about her progress and about the pending pathology. LYNETTE
[2017-11-26] MEDS: DOCUSATE SODIUM 100 MG CAP PO SCH ×2 (09:00→20:46)
[2017-11-26] MEDS: FEXOFENADINE HCL 180 MG TAB PO SCH (09:00)
[2017-11-26] MEDS: MULTIVITAMIN TAB PO SCH ×2 (09:17→21:26)
[2017-11-26] MEDS: FLUTICASONE PROPIONATE NA SPR 16 GM BTL NAE SCH (09:17)
[2017-11-26] MEDS: CALCIUM 600MG + VIT D 400 IU TAB PO SCH (09:17)
[2017-11-26] MEDS: LACTOBACILLUS ACIDOPHILUS (FLORANEX) TAB PO SCH ×2 (09:17→18:28)
[2017-11-26] MEDS: GUAIFENESIN 600 MG TABCR PO PRN ×2 (09:17→21:26)
[2017-11-26] MEDS: POTASSIUM CHLORIDE 20 MEQ TABCR PO SCH (09:18)
[2017-11-26] MEDS: ENOXAPARIN 40 MG/0.4 ML SYR SQ SCH (09:18)
[2017-11-26] MEDS: METHYLCELLULOSE POWDER 454 GM JAR PO SCH (20:48)
[2017-11-26] MEDS: TRAVOPROST Z 0.004% OPH SOLN 2.5 ML BTL OPR SCH (22:38)
[2017-11-27] MEDS: ACETAMINOPHEN 325 MG TAB PO SCH ×5 (00:21→23:26)
[2017-11-27 05:55] VITALS: O2SAT 100
[2017-11-27] MEDS: ARFORMOTEROL TART 15MCG/2ML VIAL INH SCH ×2 (07:23→20:40)
[2017-11-27 07:41] VITALS: PULSE 74; O2SAT 98
[2017-11-27 07:57] VITALS: BP 99/56; PULSE 80; TEMP 36.5; O2SAT 98
--- NOTE | 2017-11-27 08:13 | SURGERY PROGRESS NOTE ---
DATE: 11/27/[address] Jiménez. Marion is resting fairly comfortably in no acute distress. She states she really has not required much for pain. Her last vitals showed a temperature of 36.8, pulse 76, respirations 16, blood pressure 110/68, O2 sats 92 on room air. The chest tube systems intact. She has a small forced expiratory leak, probably of 1 or 2 gauge. There is no evidence of any subcutaneous emphysema. Chest x-ray from yesterday showed a moderate sized pneumothorax. I did not repeat a chest x-ray this morning. We will get another one in the morning.
[2017-11-27] MEDS: FLUTICASONE PROPIONATE NA SPR 16 GM BTL NAE SCH (08:27)
[2017-11-27] MEDS: PANTOprazole SOD 40 MG TAB PO PRN (08:27)
[2017-11-27] MEDS: POTASSIUM CHLORIDE 20 MEQ TABCR PO SCH (08:28)
[2017-11-27] MEDS: FEXOFENADINE HCL 180 MG TAB PO SCH (08:28)
[2017-11-27] MEDS: MULTIVITAMIN TAB PO SCH ×2 (08:28→20:41)
[2017-11-27] MEDS: ENOXAPARIN 40 MG/0.4 ML SYR SQ SCH (08:28)
[2017-11-27] MEDS: LACTOBACILLUS ACIDOPHILUS (FLORANEX) TAB PO SCH ×2 (08:29→17:47)
[2017-11-27] MEDS: CALCIUM 600MG + VIT D 400 IU TAB PO SCH (08:31)
[2017-11-27] MEDS: GUAIFENESIN 600 MG TABCR PO PRN ×2 (08:31→21:21)
[2017-11-27] MEDS: POLYETHYLENE (MIRALAX) 17 GM PACK PO SCH (08:32)
[2017-11-27] MEDS: DOCUSATE SODIUM 100 MG CAP PO SCH ×2 (09:53→20:42)
[2017-11-27 15:47] VITALS: BP 108/65; PULSE 72; TEMP 36.7; O2SAT 99
[2017-11-27 20:40] VITALS: PULSE 81; O2SAT 98
[2017-11-27] MEDS: METHYLCELLULOSE POWDER 454 GM JAR PO SCH (20:40)
[2017-11-27] MEDS: TRAVOPROST Z 0.004% OPH SOLN 2.5 ML BTL OPR SCH (20:42)
[2017-11-27 23:09] VITALS: BP 114/71; PULSE 81; TEMP 36.9; O2SAT 99
[2017-11-28] MEDS: ACETAMINOPHEN 325 MG TAB PO SCH ×4 (05:37→23:43)
[2017-11-28] MEDS: ARFORMOTEROL TART 15MCG/2ML VIAL INH SCH ×2 (06:59→20:00)
[2017-11-28 07:00] VITALS: PULSE 76; O2SAT 98
--- NOTE | 2017-11-28 07:27 | DIAGNOSTIC IMAGING REPORT ---
CHEST ONE VIEW PORTABLE HISTORY: 62 years-old Female follow up pneumo follow-up study in a patient with pneumonia COMPARISON: Chest radiograph 11/26/2017 TECHNIQUE: Portable AP view of the chest FINDINGS: Cardiac silhouette is within normal limits. Slightly decreased size of right apical pneumothorax now with pleural separation of 4.2 cm, previously 4.6. Right-sided chest tube is unchanged with distal tip projected over the right mediastinum. Slightly decreased amount of subcutaneous emphysema along the right chest wall. Persistent right hemidiaphragmatic elevation. Patchy bibasilar opacities are again seen suggesting atelectasis. No left-sided pneumothorax. Degenerative changes of the shoulders and spine. IMPRESSION: 1. Slightly decreased size of right apical pneumothorax with stable positioning of right-sided chest tube. 2. Patchy bibasilar opacities are again seen suggesting atelectasis. The above report was generated using voice recognition software. It may contain grammatical, syntax or spelling errors. Electronically signed by: Dani Cleaning M.D. 11/28/2017 7:26 AM Dictated Date/Time: 11/28/2017 7:24 AM
[2017-11-28 07:35] VITALS: BP 101/66; PULSE 78; TEMP 36.6; O2SAT 97
[2017-11-28] MEDS: DOCUSATE SODIUM 100 MG CAP PO SCH ×2 (09:00→22:24)
[2017-11-28] MEDS: FEXOFENADINE HCL 180 MG TAB PO SCH ×2 (09:00→12:04)
[2017-11-28] MEDS: MULTIVITAMIN TAB PO SCH ×2 (09:17→22:22)
[2017-11-28] MEDS: FLUTICASONE PROPIONATE NA SPR 16 GM BTL NAE SCH (09:17)
[2017-11-28] MEDS: LACTOBACILLUS ACIDOPHILUS (FLORANEX) TAB PO SCH ×2 (09:17→18:38)
[2017-11-28] MEDS: CALCIUM 600MG + VIT D 400 IU TAB PO SCH (09:17)
[2017-11-28] MEDS: GUAIFENESIN 600 MG TABCR PO PRN ×2 (09:17→22:24)
[2017-11-28] MEDS: PANTOprazole SOD 40 MG TAB PO PRN (09:17)
[2017-11-28] MEDS: POTASSIUM CHLORIDE 20 MEQ TABCR PO SCH (09:18)
[2017-11-28] MEDS: ENOXAPARIN 40 MG/0.4 ML SYR SQ SCH (09:19)
[2017-11-28] MEDS: LOPERAMIDE HCL 2 MG CAP PO PRN ×2 (09:22→13:22)
--- NOTE | 2017-11-28 09:37 | SURGERY PROGRESS NOTE ---
DATE: 11/28/[address] Jiménez. Marion is doing much better this morning. She feels much less shortness of breath. She is sitting in a chair at the side of the bed, ready to eat her breakfast. Her last vitals showed a temperature of 36.6, pulse 78, respirations 16, blood pressure 101/66, O2 sats 97 on room air. I&O was noted. She had minimal chest tube drainage. There is no forced expiratory leak. There is no kinking in the system. I disconnected the suction and still there is no forced expiratory leak. The imaging still shows a pneumothorax, although slightly smaller. At this point, I think we will get her moving around more suction on chest tube reestablished if the patient will become short of breath and I suspect part of the problem at this time is just the space problem with the remaining lung filling up the cavity. There is obviously no subcutaneous emphysema, no increase in pneumothorax. MTDD
[2017-11-28 15:05] VITALS: BP 109/65; PULSE 82; TEMP 36.8; O2SAT 98
[2017-11-28 21:37] VITALS: PULSE 82; O2SAT 98
[2017-11-28] MEDS: TRAVOPROST Z 0.004% OPH SOLN 2.5 ML BTL OPR SCH (22:22)
[2017-11-28] MEDS: METHYLCELLULOSE POWDER 454 GM JAR PO SCH (22:22)
[2017-11-28 23:47] VITALS: BP 107/66; PULSE 76; TEMP 36.7; O2SAT 97
[2017-11-29] MEDS: ACETAMINOPHEN 325 MG TAB PO SCH (05:38)
[2017-11-29 07:25] VITALS: PULSE 84; O2SAT 99
[2017-11-29] MEDS: FLUTICASONE PROPIONATE NA SPR 16 GM BTL NAE SCH (07:44)
[2017-11-29] MEDS: FEXOFENADINE HCL 180 MG TAB PO SCH (07:44)
[2017-11-29 08:14] VITALS: BP 115/71; PULSE 79; TEMP 36.6; O2SAT 99
[2017-11-29] MEDS: ARFORMOTEROL TART 15MCG/2ML VIAL INH SCH (08:25)
[2017-11-29] MEDS: DOCUSATE SODIUM 100 MG CAP PO SCH (09:00)
[2017-11-29] MEDS: POLYETHYLENE (MIRALAX) 17 GM PACK PO SCH (09:00)
--- NOTE | 2017-11-29 09:09 | Discharge Instructions ---
Discharge Instructions Date of Service Nov 29, 2017. Admission Reason for Admission: Right Lung Nodule Discharge Discharge Diagnosis / Problem: Metastatic colon carcinoma Discharge Goals Goal(s): Learn about illness Activity Recommendations Activity Limitations: per Instructions/Follow-up section . Instructions / Follow-Up Instructions / Follow-Up Remove dressing and shower on , 2017. May drive and resume regular activity next weekend. Current Hospital Diet Patient's current hospital diet: Regular Diet Discharge Diet Recommended Diet: Regular Diet Procedures Procedures Performed: Right Robotic Assisted Thoracoscopy with Right Lower Lobe Wedge Resection, Right Lower Lobectomy with Mediastinal Lymphadenectomy Pending Studies Studies pending at discharge: no Medical Emergencies . Who to Call and When: Medical Emergencies: If at any time you feel your situation is an emergency, please call 911 immediately. . Non-Emergent Contact Non-Emergency issues call your: Primary Care Provider, Surgeon (Call [phone] Jiménez for any problems.) . "Provider Documentation" section prepared by Bj Jiménez. . VTE Core Measure Inpt VTE Proph given/why not?: Enoxaparin (Lovenox)SQ, SCD's
--- NOTE | 2017-11-29 09:17 | DIAGNOSTIC IMAGING REPORT ---
SINGLE VIEW CHEST CLINICAL HISTORY: Status post chest tube removal. FINDINGS: An AP, portable, upright chest radiograph is compared to study dated 11/28/2017. Correlation is made with chest CT dated 09/15/2017. The examination is degraded by portable technique and patient rotation. The cardiomediastinal silhouette is unremarkable. A right-sided chest tube has been removed. A right apical pneumothorax is unchanged. There is at least 4.5 cm of apical pleural separation. There is volume loss the right lung consistent with right lower lobe resection. Fluid and airspace opacities our again seen at the right lung base. The left lung appears clear. No left-sided pneumothorax is seen. The skeletal structures are osteopenic. The bony thorax is grossly intact. Subcutaneous gas is seen along the right chest wall. IMPRESSION: 1. Again seen are postoperative changes from right lower lobe resection. Fluid and opacities at the right lung base are similar to previous. 2. The right-sided chest tube has been removed. A right apical pneumothorax persists. 3. The left lung appears clear. Electronically signed by: Espinoza Jackson M.D. 11/29/2017 9:16 AM Dictated Date/Time: 11/29/2017 9:13 AM
[2017-11-29] MEDS: POTASSIUM CHLORIDE 20 MEQ TABCR PO SCH (09:27)
[2017-11-29] MEDS: MULTIVITAMIN TAB PO SCH (09:27)
[2017-11-29] MEDS: LACTOBACILLUS ACIDOPHILUS (FLORANEX) TAB PO SCH (09:27)
[2017-11-29] MEDS: CALCIUM 600MG + VIT D 400 IU TAB PO SCH (09:27)
[2017-11-29] MEDS: ENOXAPARIN 40 MG/0.4 ML SYR SQ SCH (09:28)
[2017-11-29 10:57] VITALS: BP 115/71; PULSE 79; TEMP 36.6; O2SAT 99
--- NOTE | 2017-11-29 12:44 | DISCHARGE SUMMARY ---
DISCHARGE DIAGNOSES: 1. Metastatic colon carcinoma, right lower lobe. 2. History of colon carcinoma. 3. History of cigarette smoking. 4. History of first degree relative with lung cancer. HOSPITAL COURSE: This is a very nice 62-year-old female with excellent lung function who presented with an enlarging mass in her right lower lobe. I evaluated in the office and I had a long discussion with the patient and explained that we could do a wedge resection and should this prove to be a carcinoma, we would proceed with a lobectomy. I also explained that we would not be able to tell debranching colon cancer or primary lung cancer on frozen section. On 11/24/2017, the patient was brought to the operating room and underwent an uncomplicated wedge resection of a small right lower lobe mass medially. Indeed, this did log turner to be a carcinoma. We proceeded a robot-assisted thoracoscopic right lower lobectomy with mediastinal lymphadenectomy. The patient did very well and she had a small air leak after surgery. The patient's air leak resolved over the next 3 days. She also had a small pneumothorax. She did very well and I kept her an extra day to postop day #5 because of her air leak and her x-ray, but she really had no air leak whatsoever in the last 24 hours and I removed her chest tube. Her x-ray showed a small pneumothorax afterwards was unchanged. She was sounded very good on auscultation and was on room air were 99% sats. Her pain control was excellent. She did not go home on narcotics. Her incisions were clean. She had some ecchymosis around her lower incision. I was quite happy with her. She looked very good, ambulating in the hallway, moving her bowels and tolerating a diet. I have discharged her on postop day #5. I will see her back in 1 week with an x-ray. I am quite pleased with how well she tolerated this procedure. The final pathology showed this to be a colon metastases. I sent off multiple lymph nodes which were all negative for carcinoma and of course her margins are negative tube. We will discuss this case at our multidisciplinary cancer conference.
[2018-01-05] MEDS ORDERED: ALBU18002 INH (13:40)
== END 2017-11-29 11:15 | disposition home health service (06) | DRG 164 ==
LOC: C.ACU 09:52 → C.3E 15:37 → ENRESERV 17:09
PROVIDERS: ADMIT Surgery; ATTEND Surgery
PROC: 0BTF4ZZ Resection of Right Lower Lung Lobe, Percutaneous Endoscopic Approach (ICD-10-PCS; principal; 2017-11-24 12:00)
PROC: 07B74ZX Excision of Thorax Lymphatic, Percutaneous Endoscopic Approach, Diagnostic (ICD-10-PCS; principal; 2017-11-24 12:00)
PROC: 0BBF4ZX Excision of Right Lower Lung Lobe, Percutaneous Endoscopic Approach, Diagnostic (ICD-10-PCS; principal; 2017-11-24 12:00)
PROC: 8E0W4CZ Robotic Assisted Procedure of Trunk Region, Percutaneous Endoscopic Approach (ICD-10-PCS; principal; 2017-11-24 12:00)
DX: C78.01 Secondary malignant neoplasm of right lung (principal); J95.812 Postprocedural air leak; J95.811 Postprocedural pneumothorax; Z87.891 Personal history of nicotine dependence; Z85.038 Personal history of other malignant neoplasm of large intestine; J44.9 Chronic obstructive pulmonary disease, unspecified; K21.9 Gastro-esophageal reflux disease without esophagitis; F32.9 Major depressive disorder, single episode, unspecified; Z80.1 Family history of malignant neoplasm of trachea, bronchus and lung; Z83.3 Family history of diabetes mellitus

== ENCOUNTER → 2017-12-07 | Outpatient (CLI) | payer BC ==
[~2017-12-07] MED LIST changes: -DEXAMETHASONE SOD INJ 4 MG/ML VIAL ONE; -FENTANYL CITRATE INJ 50 MCG/1 ML 2 ML VIAL ONE; +FEXO3TAB PO; -LACTATED RINGER'S 1000ML 1,000 ML IV SCH; -LIDOCAINE HCL 2% 2 ML VIAL (20MG/ML) ONE; -MIDAZOLAM HCL 1 MG/ML 2ML VIAL ONE; -ONDANSETRON INJ 2 MG/ML 2 ML VIAL ONE; -PROPOFOL IV EMULSION 10 MG/ML 20 ML VIAL IV ONE; -ROCURONIUM BROMIDE 10 MG/ML 5 ML VIAL IV ONE
--- NOTE | 2017-12-07 10:40 | DIAGNOSTIC IMAGING REPORT ---
CHEST 2 VIEWS ROUTINE CLINICAL HISTORY: Metastatic adenocarcinoma. COMPARISON STUDY: Chest radiograph November 29, 2017. FINDINGS: Right lung volume loss is again noted. A right hydropneumothorax is again noted. The amount of pleural fluid has slightly increased since exam of November 29, 2017. The amount of pleural gas has diminished with superior pleural separation of 2.6 cm. A previous measured 4.7 cm. There is no evidence for pulmonary edema. Cardiomediastinal silhouette is stable. IMPRESSION: Redemonstration of a right hydropneumothorax with slight interval increase in the amount of pleural fluid and interval decrease in amount of pleural gas since exam of November 29, 2017. Electronically signed by: Emmanuel Gupta M.D. 12/07/2017 10:39 AM Dictated Date/Time: 12/07/2017 10:28 AM
== END | disposition home or self-care (01) ==
LOC: C.RAD 10:02
PROVIDERS: ATTEND Surgery
DX: C79.9 Secondary malignant neoplasm of unspecified site (principal)

== ENCOUNTER → 2017-12-13 | Outpatient (CLI) | payer BC ==
--- NOTE | 2017-12-13 10:07 | DIAGNOSTIC IMAGING REPORT ---
CHEST 2 VIEWS ROUTINE CLINICAL HISTORY: R06.02 SOB (shortness of breath) on [id number] COMPARISON STUDY: 12/07/2017 FINDINGS: Right apical hydropneumothorax. Slight increase in pleural fluid within the 2.5 cm structure. All remaining components of the study are unchanged. Left lung remains clear. IMPRESSION: Slight increase in the fluid component of a right apical hydropneumothorax. No change in overall size. The above report was generated using voice recognition software. It may contain grammatical, syntax or spelling errors. Electronically signed by: Brent Villalobos M.D. 12/13/2017 10:06 AM Dictated Date/Time: 12/13/2017 10:02 AM
== END | disposition home or self-care (01) ==
LOC: C.RAD1850 09:54
PROVIDERS: ATTEND Surgery
DX: R06.02 Shortness of breath (principal); R05 Cough

== ENCOUNTER → 2017-12-14 | Day surgery (SDC) | payer BC ==
[~2017-12-14] VITALS: Ht 168.9 cm; Wt 85.4 kg
[2017-12-14 08:03] VITALS: BP 113/62; PULSE 70; TEMP 36.8; O2SAT 97; Ht 168.9 cm; Wt 85.4 kg
[2017-12-14 08:31] VITALS: TEMP 36.7
--- NOTE | 2017-12-14 08:32 | Discharge Instructions ---
Discharge Instructions Date of Service Dec 14, 2017. Visit Reason for Visit: Pleural Effusion Discharge Discharge Diagnosis / Problem: Pleural Effusion Discharge Goals Goal(s): Decrease discomfort Activity Recommendations Activity Limitations: resume your previous activity (in 24 hours) Anesthesia . Post Anesthesia Instructions: If you have had General Anesthesia or IV Sedation: * Do not drive today. * Resume driving when surgeon permits. * Do not make important decisions or sign legal documents today. * Call surgeon for: 1. Temperature elevations greater than 101 degrees F. 2. Uncontrollable pain. 3. Excessive bleeding. 4. Persistent nausea and vomiting. 5. Medication intolerance (nausea, vomiting or rash). * For nausea and vomiting use only clear liquids such as: tea, soda, bouillon until nausea subsides, then gradually increase diet as tolerated. * If you have any concerns or questions, call your surgeon's office. If physician is unavailable and it is an emergency, call 911 or go to the nearest emergency room. . Instructions / Follow-Up Instructions / Follow-Up 1. Remove dressing in 24 hours and then you may shower. 2. Keep your scheduled appointment with Dr. Jiménez on December 20 @ 9:45 am. Go to hospital 1 hour before appointment to have a chest x-ray taken. Diet Recommendations Recommended Home Diet: resume previous diet Pending Studies Studies pending at discharge: no Medical Emergencies . Who to Call and When: Medical Emergencies: If at any time you feel your situation is an emergency, please call 911 immediately. . Non-Emergent Contact Non-Emergency issues call your: Surgeon Call Non-Emergent contact if: you have a fever, your pain is not controlled, wound has increased drainage . . "Provider Documentation" section prepared by Sergio Cox. .
[2017-12-14 08:44] VITALS: BP 106/64; PULSE 77; O2SAT 97
--- NOTE | 2017-12-14 08:56 | DIAGNOSTIC IMAGING REPORT ---
SINGLE VIEW CHEST CLINICAL HISTORY: Status post thoracentesis FINDINGS: An AP, portable, upright chest radiograph is compared to study dated 12/13/2017 and correlated with chest CT dated 09/15/2017. The examination is degraded by portable technique and patient rotation. The heart is top normal for projection. The pulmonary vasculature is noncongested. Elevation of the right hemidiaphragm is unchanged. There is a small hydropneumothorax seen at the right apex. Trace pleural fluid is seen at the right lung base. The left lung is grossly clear noting basilar atelectasis. The skeletal structures are osteopenic. The bony thorax is grossly intact. IMPRESSION: 1. A small right apical hydropneumothorax is similar in appearance to yesterday. 2. The left lung appears clear. Electronically signed by: Espinoza Jackson M.D. 12/14/2017 8:54 AM Dictated Date/Time: 12/14/2017 8:53 AM
[2017-12-14 09:43] LABS: PLEURAL FLUID TOTAL PROTEIN 4.7 g/dl
--- NOTE | 2017-12-14 10:22 | OPERATIVE REPORT ---
DATE OF OPERATION: 12/14/2017 PREOPERATIVE DIAGNOSES: 1. Right pleural effusion. 2. Three weeks status post robotic right lower lobectomy and mediastinal lymphadenectomy. 3. Metastatic colon carcinoma. PROCEDURE: Right thoracentesis under ultrasound guidance. SURGEON: Bj Jiménez MD ANESTHESIA: Local. INDICATION FOR THE PROCEDURE: Marion Mcnulty is a very nice 62-year-old female, who has a history of colorectal carcinoma, who has had a small mass in the right lower lobe, which was growing. I did a wedge resection thoracoscopically with robot assistance and this turned out to be an adenocarcinoma. We elected to proceed with right lower lobectomy and mediastinal lymphadenectomy. It is a very small carcinoma. It appeared to be a metastatic colon, but we were unable to tell that from a frozen section. It was not until the immunohistochemical stains were back that we knew that. Anyway, she did very well with the surgery. She presented back and she looked quite good, but she had a bit more fluid than I would like. She called yesterday and states she had a low grade fever with a mildly productive cough and she was a bit more short of breath. I had her come in day. She does have a pleural effusion. It does not really change much, but I thought that doing a thoracentesis would be helpful. We did start her on azithromycin yesterday and she feels a bit better, although she is producing clear to white sputum today. DESCRIPTION OF THE PROCEDURE: On the morning of 12/14/2017, I brought the patient to the childcare teacher unit. She was placed in a seated position. After appropriate timeout had been called, an ultrasound was used to devin a window in the right posterior chest. She was prepped and draped in the usual sterile fashion. A 25 gauge needle with 1% Xylocaine was used to anesthetize the skin, subcutaneous tissues and pleura. I then used a large bore needle to go into the space and a light colored jessa fluid was drained, which appeared to be serous in nature. A guidewire was inserted through the needle and needle removed. Introducer sheath was slid over the guidewire and then removed to dilate this up. A triple lumen catheter was slid in 17 cm and the wire removed. 550 mL of rust colored fluid was drained. She had some mild reexpansion pain. Her saturation was 99% at the conclusion of the case. I then removed the catheter and placed an antimicrobial dressing with instructions to remove this tomorrow. The pH was over 7.4. She tolerated it well. Chest x-ray is pending at this time. I attest to the content of the Intraoperative Record and any orders documented therein. Any exception s are noted below.
== END | disposition home or self-care (01) ==
LOC: C.ACU 07:01
PROVIDERS: ATTEND Surgery
DX: J90 Pleural effusion, not elsewhere classified (principal); C78.5 Secondary malignant neoplasm of large intestine and rectum; D72.820 Lymphocytosis (symptomatic); Z90.89 Acquired absence of other organs

== ENCOUNTER → 2017-12-20 | Outpatient (CLI) | payer BC ==
--- NOTE | 2017-12-20 08:59 | DIAGNOSTIC IMAGING REPORT ---
CHEST 2 VIEWS ROUTINE CLINICAL HISTORY: 62 years-old Female presenting with J90 Pleural [id number], status post right lower lobectomy. TECHNIQUE: PA and lateral views of the chest were obtained. COMPARISON: 12/14/2017. FINDINGS: Cardiomediastinal silhouette normal. Interval resolution of right apical pneumothorax. Persistent small to moderate right pleural effusion, which may be loculated. Postsurgical changes of right lower lobectomy. The right upper and middle lobes are fairly well aerated though minimal atelectasis may be present secondary to the pleural effusion. Left lung and pleural space clear. Degenerative changes of the thoracic spine. IMPRESSION: 1. Resolution of right pneumothorax with persistent small to moderate right pleural effusion, which may be loculated. 2. Post surgical changes right lower lobectomy. Electronically signed by: Edmund Nguyễn M.D. 12/20/2017 8:58 AM Dictated Date/Time: 12/20/2017 8:55 AM
== END | disposition home or self-care (01) ==
LOC: C.RAD1850 08:46
PROVIDERS: ATTEND Surgery
DX: J90 Pleural effusion, not elsewhere classified (principal); Z90.2 Acquired absence of lung [part of]

== ENCOUNTER → 2018-01-06 | Outpatient (CLI) | payer BC ==
[~2018-01-06] MED LIST changes: +ALBU18002 INH
--- NOTE | 2018-01-06 09:04 | DIAGNOSTIC IMAGING REPORT ---
CHEST 2 VIEWS ROUTINE CLINICAL HISTORY: NODULE effusion COMPARISON STUDY: 12/20/2017 FINDINGS: Stable postoperative changes of right lower lobectomy. Unchanging atelectasis versus effusion right base. No postprocedural pneumothorax of significance. Apical pleural thickening right to lesser extent left considered stable to improved. IMPRESSION: Stable postoperative changes right base. No significant pneumothorax. Unchanging right basilar pleural effusion. The above report was generated using voice recognition software. It may contain grammatical, syntax or spelling errors. Electronically signed by: Brent Villalobos M.D. 01/06/2018 9:03 AM Dictated Date/Time: 01/06/2018 9:02 AM
== END | disposition home or self-care (01) ==
LOC: C.RAD1850 08:21
PROVIDERS: ATTEND Physician Assistant
DX: R91.1 Solitary pulmonary nodule (principal)

== ENCOUNTER → 2018-01-11 | Day surgery (SDC) | payer BC ==
[2018-01-05 13:40] VITALS: Ht 168.9 cm; Wt 84.5 kg
[~2018-01-11] VITALS: Ht 168.9 cm; Wt 84.5 kg
[~2018-01-11] MED LIST changes: +LIDOCAINE HCL 2% 2 ML VIAL (20MG/ML) ONE; +PROPOFOL IV EMULSION 10 MG/ML 20 ML VIAL IV ONE; +SODIUM CHLORIDE 0.9% 500ML 500 ML IV ONE
--- NOTE | 2018-01-11 11:44 | Endo History and Physical ---
History & Physical Date of Service: Jan 11, 2018. Chief Complaint: history of rectal cancer Referring Physician: Dr. Lon Ng History of Present Illness Ho rectal cancer Past Medical History Arthritis, Asthma, Reflux, Cancer, High Cholesterol, COPD, Depression Past Surgical History Hx Cardiac Surgery: No Hx Internal Defibrillator: No Hx Pacemaker: No Hx Abdominal Surgery: Yes (JESSIE, ECTOPIC PREGNANCIES "A COUPLE") Hx of Implantable Prosthesis: No Hx Post-Op Nausea and Vomiting: Yes (S/P ILEOSTOMY REVERSAL) Hx Cancer Surgery: Yes (PARTIAL COLON RESECTION WITH ILEOSTOMY AND REVERSAL, RT LOWER LOBECTOMY) Hx Thoracic Surgery: Yes (RT THORACENTESIS, BRONCOSCOPY) Hx Orthopedic: Yes (RT KNEE SURGERY) Hx Urinary Tract Surgery: No Family History IBD Social History Smoking Status: Former Smoker Hx Substance Use: No Hx Alcohol Use: Yes (RARELY) Allergies Coded Allergies: Levofloxacin (Verified Allergy, Severe, SHORTNESS OF BREATH, 01/05/18) Oxaliplatin (Verified Allergy, Severe, ANAPHYLAXIS, 01/05/18) Dust (Verified Allergy, Intermediate, SNEEZING, RUNNY NOSE, ITCHY EYES., ) Molds and Smuts (Verified Allergy, Intermediate, RUNNY NOSE, ITCHY EYES, SNEEZING, 01/05/18) Doxycycline (Verified Allergy, Mild, RASH, 01/05/18) Sulfa Antibiotics (Verified Allergy, Mild, HIVES,ITCHY, 01/05/18) Codeine (Verified Adverse Reaction, Mild, NAUSEA, 01/05/18) Morphine and Related (Verified Adverse Reaction, Mild, nausea, 01/05/18) Moxifloxacin (Verified Adverse Reaction, Unknown, "I GET DIZZY.", 01/05/18) Current Medications Reported Home Medications Medications Dose Route/Sig Max Daily Dose Days Date Category Proair Respiclick (Albuterol Sulfate) 108 Mcg/Act Aer 2 Puffs INH Q4 PRN 01/05/18 Reported Mucinex Allergy (Fexofenadine HCl) 180 Mg Tab 1 Tab PO BID 11/24/17 Reported Os-Pernell 500 Plus D (Calcium/Vitamin D) Tab 1 Tab PO QAM 11/15/17 Reported Flonase Allergy Relief (Fluticasone Propionate (Nasal)) 50 Mcg/Act Spr 2 Sprays DUANE DAILY 11/15/17 Reported [Goodzymes] 1 Dose PO TIDM PRN 11/15/17 Reported Potassium Chloride ER (Potassium Chloride) 20 Meq Tab 20 Meq PO QAM 11/15/17 Reported Brovana (Arformoterol Tartrate) 15 Mcg/2 Ml Neb 1 Dose NEB QAM 06/29/17 Reported Travatan Z (Travoprost) 0.004 % Alpesh 1 Drops OPR HS 04/22/17 Reported Citrucel Fiber Laxative (Methylcellulose (Laxative)) 1 Pow Pow 1 Dose PO QPM 04/22/17 Reported Miralax (Polyethylene) 17 Gm Pow 1 Dose PO Q2D 04/22/17 Reported Rome-3 (Fish Oil) 1 Ea Cap 1 Cap PO QAM 04/22/17 Reported Tylenol (Acetaminophen) 500 Mg Tab 500-1,000 Mg PO PRN 04/22/17 Reported Multivitamin (Multivitamins) Tab 1 Tab PO BID 04/22/17 Reported Culturelle (Lactobacillus-Inulin) 1 Cap Cap 1 Tab PO DAILY 04/22/17 Reported Imodium (Loperamide HCl) 2 Mg Cap 4 Mg PO Q6 PRN 11/26/16 Reported Prilosec (Omeprazole) 20 Mg Capcr 20 Mg PO DAILY PRN 03/15/16 Reported Duoneb (Ipratropium-Albuterol) 3 Ml Nebu 1 Treatment INH Q4H PRN 11/02/13 Reported Vital Signs Weight (Kilograms): 84.55 Height (Feet): 5 Height (Inches): 6.5 Date Time Temp Pulse Resp B/P (MAP) Pulse Ox O2 Delivery O2 Flow Rate FiO2 01/11/18 10:52 37.2 85 18 114/63 (80) 100 Room Air Physical Exam General Appearance: no apparent distress Respiratory/Chest: Auscultation: breath sounds normal Cardiovascular: Heart Auscultation: RRR Abdomen: Inspection & Palpation: soft Assessment and Plan H/o rectal cancer - colonoscopy
--- NOTE | 2018-01-11 12:55 | GI REPORT ---
Procedure Date: 01/11/2018 11:26 AM Procedure: Colonoscopy Indications: High risk colon cancer surveillance: Personal history of colon cancer Medicines: See the Anesthesia note for documentation of the administered medications Complications: No immediate complications. Estimated Blood Loss: Estimated blood loss: none. Procedure: Pre-Anesthesia Assessment: - ASA Grade Assessment: III - A patient with severe systemic disease. After I obtained informed consent, the scope was passed under direct vision. Throughout the procedure, the patient's blood pressure, pulse, and oxygen saturations were monitored continuously. The scope was introduced through the anus and advanced to the cecum, identified by appendiceal orifice and ileocecal valve. The colonoscopy was performed without difficulty. The patient tolerated the procedure well. The quality of the bowel preparation was good. Findings: The perianal and digital rectal examinations were normal. There was a low rectal anastamosis. The rectum was foreshortened, and retroflexion could not be performed. A 15 mm polyp was found in the hepatic flexure. The polyp was flat. The polyp was removed with a saline injection-lift technique using a hot snare. The polyp was removed with a piecemeal technique using a hot snare. Resection and retrieval were complete. To prevent bleeding after the polypectomy, two hemostatic clips were successfully placed. There was no bleeding at the end of the procedure. The colon was otherwise normal. Impression: - One 15 mm polyp at the hepatic flexure, removed using injection-lift and a hot snare and removed piecemeal using a hot snare. Resected and retrieved. Clips were placed. - Low rectal anastamosis. Recommendation: Discharge pt home. - Repeat colonoscopy in 1 year for surveillance. Anant Amaral M.D. Anant Amaral MD 01/11/2018 12:54:50 PM This report has been signed electronically. Note Initiated On: 01/11/2018 11:26 AM I attest to the content of the Intraoperative Record and orders documented therein, exceptions below
--- NOTE | 2018-01-11 12:55 | Discharge Instructions ---
Endoscopy Patient Instructions Date / Procedure(s) Performed Jan 11, 2018. Colonoscopy Allergy Information Coded Allergies: Levofloxacin (Verified Allergy, Severe, SHORTNESS OF BREATH, 01/05/18) Oxaliplatin (Verified Allergy, Severe, ANAPHYLAXIS, 01/05/18) Dust (Verified Allergy, Intermediate, SNEEZING, RUNNY NOSE, ITCHY EYES., ) Molds and Smuts (Verified Allergy, Intermediate, RUNNY NOSE, ITCHY EYES, SNEEZING, 01/05/18) Doxycycline (Verified Allergy, Mild, RASH, 01/05/18) Sulfa Antibiotics (Verified Allergy, Mild, HIVES,ITCHY, 01/05/18) Codeine (Verified Adverse Reaction, Mild, NAUSEA, 01/05/18) Morphine and Related (Verified Adverse Reaction, Mild, nausea, 01/05/18) Moxifloxacin (Verified Adverse Reaction, Unknown, "I GET DIZZY.", 01/05/18) Discharge Date / Findings Jan 11, 2018. Large colon polyp, rectal anastamosis Provider Instructions Activity Restrictions - No exercising or heavy lifting for 24 hours. - Do not drink alcohol the day of the procedure. - Do not drive a car or operate machinery until the day after the procedure. - Do not make any important decisions or sign important papers in 24 hours after the procedure. Following Day: - Return to full activity which may include returning to work/school. Diet Start your diet with liquids and light foods (jello, soup, juice, toast). Then eat your usual diet if not nauseated. Treatment For Common After Affects For mild abdominal pain, bloating, or excessive gas: - Rest - Eat lightly - Lie on right side Follow-Up Information Follow-up with Dr. Lon Ng as scheduled Anesthesia Information What You Should Know You have had a procedure that required some medicine to reduce anxiety and discomfort. This treatment is called moderate sedation. After receiving the treatment, you may be sleepy, but you will be able to breathe on your own. The effects of the treatment may last for several hours. Follow these instructions along with Activity/Diet recommendations noted above: * Do NOT do anything where dizziness or clumsiness would be dangerous. * Rest quietly at home today, then you can be up and about tomorrow. * Have a responsible person stay with you the rest of today. * You may have had an I.V. today. If so, you may take the dressing off later today. Recommendations Call your doctor if: * Trouble breathing * Continuous vomiting for more than 24 hours * Temperature above 101 degrees * Severe abdominal pain or bloating * Pain not relieved by pain medicine ordered * There is increased drainage or redness from any incision * A large amount of rectal bleeding greater than 2-3 tablespoons. (If you had a polyp/s removed or have hemorrhoids, a small amount of blood - from the rectum is to be expected.) * You have any unanswered questions or concerns. IN THE EVENT OF A SERIOUS EMERGENCY, GO TO THE NEAREST EMERGENCY ROOM Your discharge instructions were prepared by provider Anant Parker. Patient Instructions Signature Page Marion Mcnulty Patient (or Guardian) Signature/Date: I have read and understand the instructions given to me by my caregivers. Caregiver/RN/Doctor Signature/Date: The above-named patient and/or guardian has received patient instructions on this date. + Original Patient Signature Page (only) stays with chart. Please make copy for patient.
--- NOTE | 2018-01-11 13:00 | Anesthesiology Progress Note ---
Anesthesia Post Op Note Date & Time Jan 11, 2018 at 13:00 Vital Signs Pain Intensity: 0 Vital Signs Past 12 Hours Date Time Temp Pulse Resp B/P (MAP) Pulse Ox O2 Delivery O2 Flow Rate FiO2 01/11/18 12:46 79 16 107/59 (75) 99 Room Air 01/11/18 10:52 37.2 85 18 114/63 (80) 100 Room Air Notes Mental Status: alert / awake / arousable, participated in evaluation Pt Amnestic to Procedure: Yes Nausea / Vomiting: adequately controlled Pain: adequately controlled Airway Patency, RR, SpO2: stable & adequate BP & HR: stable & adequate Hydration State: stable & adequate Anesthetic Complications: no major complications apparent
[2018-01-11 13:16] VITALS: BP 121/77; PULSE 72; O2SAT 100
== END | disposition home or self-care (01) ==
LOC: C.GI 10:24
PROVIDERS: ATTEND Internal Medicine Gastroenterology
DX: Z12.11 Encounter for screening for malignant neoplasm of colon (principal); D12.3 Benign neoplasm of transverse colon; Z85.048 Personal history of other malignant neoplasm of rectum, rectosigmoid junction, and anus; K21.9 Gastro-esophageal reflux disease without esophagitis; M19.90 Unspecified osteoarthritis, unspecified site; J45.909 Unspecified asthma, uncomplicated; E78.00 Pure hypercholesterolemia, unspecified; J44.9 Chronic obstructive pulmonary disease, unspecified; F32.9 Major depressive disorder, single episode, unspecified; Z90.49 Acquired absence of other specified parts of digestive tract; Z87.891 Personal history of nicotine dependence; Z88.2 Allergy status to sulfonamides; Z88.5 Allergy status to narcotic agent; Z85.118 Personal history of other malignant neoplasm of bronchus and lung

== ENCOUNTER → 2018-02-04 | Outpatient (CLI) | payer BC ==
[~2018-02-04] MED LIST changes: +AZIT500T26 PO; +CEFU1TAB35 PO; -LIDOCAINE HCL 2% 2 ML VIAL (20MG/ML) ONE; +OPTIRAY 320 IV PRN; +PRED50TA PO; -PROPOFOL IV EMULSION 10 MG/ML 20 ML VIAL IV ONE; -SODIUM CHLORIDE 0.9% 500ML 500 ML IV ONE
--- NOTE | 2018-02-04 12:28 | DIAGNOSTIC IMAGING REPORT ---
CT ABD/PELVIS IV AND ORAL CONT CLINICAL HISTORY: Rectal carcinoma COMPARISON STUDY: 09/15/2017 TECHNIQUE: Following the IV administration of 93 mL of Optiray-320, CT scan of the abdomen and pelvis was performed from the lung bases to the proximal femurs. Images are reviewed in the axial, sagittal, and coronal planes. IV contrast was administered without complication. A dose lowering technique was utilized adhering to the principles of ALARA. CT DOSE: FINDINGS: Lower chest: Since the prior study, the patient has developed a moderate right pleural effusion. Liver: There is a 15 mm hypodense left hepatic nodule, unchanged the prior study. This approaches water attenuation and likely represents a cyst. There is mild intra and extrahepatic biliary ductal dilatation Gallbladder: Surgically absent Spleen: Normal in size and attenuation. Pancreas: Unremarkable. Adrenal glands: Unremarkable. Kidneys: There is symmetric renal cortical enhancement. The kidneys are normal in size without hydronephrosis. Bowel: There are postsurgical changes present. There are no transition zone to indicate bowel obstruction. No acute inflammatory changes are visualized. Peritoneum: There is no intraperitoneal free air or abdominal ascites. There is a fat-containing abdominal hernia. There is a tiny fat-containing right anterolateral abdominal wall hernia. Vasculature: The abdominal aorta is normal in course and caliber. Adenopathy: None. Pelvic viscera: There is a calcified uterine fibroid. Skeletal structures: No destructive osseous lesions are seen. IMPRESSION: 1. Interval development of a moderate right pleural effusion 2. Stable 15 mm hepatic hypodensity, likely representing a cyst 3. Postsurgical changes involving the colon. 4. Mild intra and extra hepatic biliary ductal dilatation. This is a new finding of uncertain etiology. 5. No CT evidence of intra-abdominal or pelvic metastatic disease Electronically signed by: Moy Rinaldi M.D. 02/04/2018 12:26 PM Dictated Date/Time: 02/04/2018 12:20 PM
--- NOTE | 2018-02-04 12:39 | DIAGNOSTIC IMAGING REPORT ---
CT (CHEST) THORAX WITH CT DOSE: 1398.64 mGycm HISTORY: Rectal carcinoma RECTAL CA, PT NEEDS IV TEAM PLEASE TECHNIQUE: Multiaxial CT images of the chest were performed following the intravenous administration of contrast. A dose lowering technique was utilized adhering to the principles of ALARA. COMPARISON: 09/15/2017. PET scan 11/03/2017 FINDINGS: Interval right lower lobectomy. Moderate right pleural effusion. Pleural fluid adjacent to the operative site at the right lower lobe bronchus. A well-defined associated soft tissue mass is not appreciated. Lungs otherwise appear clear. There is no current evidence for significant nodularity. No significant mediastinal or hilar adenopathy. Thoracic aorta is normal in course and caliber. IMPRESSION: 1. Interval right lower lobectomy with resection of the parenchymal nodule previous described. 2. Moderate right pleural effusion as postoperative residual. 3. CT of the chest is otherwise negative. The above report was generated using voice recognition software. It may contain grammatical, syntax or spelling errors. Electronically signed by: Brent Villalobos M.D. 02/04/2018 12:37 PM Dictated Date/Time: 02/04/2018 12:25 PM
== END | disposition home or self-care (01) ==
LOC: C.CTS 09:42
PROVIDERS: ATTEND Internal Medicine Hematology & Oncology
DX: C20 Malignant neoplasm of rectum (principal)

== ENCOUNTER 2018-02-16 07:46 | Emergency (ER) | payer BC ==
[~2018-02-16] VITALS: Ht 168.9 cm; Wt 85.8 kg
[~2018-02-16 07:46] MED LIST changes: -AZIT500T26 PO; -CEFU1TAB35 PO; -OPTIRAY 320 IV PRN; -PRED50TA PO
[2018-02-16 07:53] VITALS: TEMP 36.8; Ht 168.9 cm; Wt 85.8 kg
[2018-02-16] MEDS ORDERED: ALBUTEROL 0.083% NEBU SOLN 3 ML VIAL INH STA (08:18)
[2018-02-16] MEDS ORDERED: CEFU1TAB35 PO (08:32)
[2018-02-16] MEDS ORDERED: AZIT500T26 PO (08:32)
[2018-02-16 08:56] LABS: BASO % 0.6 %; BASO ABS # 0.03 K/uL (0-0.2); EOS % 2.4 %; EOS ABS # 0.12 K/uL (0-0.5); HEMATOCRIT 35.4 % (37-47); HEMOGLOBIN 11.8 g/dL (12.0-16.0); IG# 0.04 K/uL (0.00-0.02); LYMPH % 27.2 %; LYMPH ABS # 1.37 K/uL (1.2-3.4); MEAN CELL VOLUME 82.1 fL (80-100); MEAN CORPUSCULAR HEMOGLOBIN 27.4 pg (25-34); MEAN CORPUSCULAR HGB CONC 33.3 g/dl (32-36); MEAN PLATELET VOLUME 9.1 fL (7.4-10.4); MONO % 7.6 %; MONO ABS # 0.38 K/uL (0.11-0.59); NEUT % 61.4 %; NEUT ABS # 3.09 K/uL (1.4-6.5); PLATELET COUNT 227 K/uL (130-400); RED CELL DISTRIBUTION WIDTH CV 14.7 % (11.5-14.5); RED CELL DISTRIBUTION WIDTH SD 44.2 fL (36.4-46.3); WHITE BLOOD COUNT 5.03 K/uL (4.8-10.8)
[2018-02-16 09:13] LABS: CALCIUM 9.3 mg/dl (8.5-10.1); CREATININE 0.93 mg/dl (0.60-1.20); POTASSIUM 4.3 mmol/L (3.5-5.1)
--- NOTE | 2018-02-16 09:37 | DIAGNOSTIC IMAGING REPORT ---
CHEST 2 VIEWS ROUTINE HISTORY: cough COMPARISON: Chest CT 02/04/2018. Chest 01/06/2018. FINDINGS: No pneumothorax. Volume loss within the right hemithorax, unchanged consistent with postoperative change. Small right pleural effusion has improved. No focal lung consolidations to suggest pneumonia. No evidence for pulmonary edema. The heart is normal in size. IMPRESSION: Improvement in the small right pleural effusion. No acute process within the chest. Electronically signed by: Alexys Gonsales M.D. 02/16/2018 9:35 AM Dictated Date/Time: 02/16/2018 9:33 AM
[2018-02-16 09:57] VITALS: BP 121/58; PULSE 78; O2SAT 99
[2018-02-16] MEDS ORDERED: PRED50TA PO (10:05)
[2018-02-16 11:25] LABS: INFLUENZA B ANTIGEN Neg for Influ B (NEG)
--- NOTE | 2018-02-16 14:34 | EMERGENCY ROOM VISIT NOTE ---
History Report prepared by Nina: Vu Nicole Under the Supervision of: Dr. Dion Wynn D.O. First contact with patient: 08:05 Chief Complaint: RESPIRATORY PROBLEMS Stated Complaint: SINUS INF, BRONCHITIS, ANTIBIOTICS NOT WORKING History of Present Illness The patient is a 63 year old female who presents to the Emergency Room with complaints of worsening shortness of breath beginning four weeks ago. She also complains of cough, and sinus congestion. Her cough is non-productive. The patient was diagnosed with a sinus infection three weeks ago, and was started on Augmentin and Azithromycin. She was switched to Clindamycin earlier this week. She has a history of asthma. The patient has a history of partial lobectomy due to lung cancer three months ago. She received chemotherapy and radiation three years ago. Pt denies headache, known fevers, chest pain, abdominal pain, nausea, vomiting, diarrhea, pain with urination, and melena. Source of History: patient Onset: Four weeks ago Quality: other (shortness of breath) Timing: worsening Associated Symptoms: + cough, No fevers (known), No headache, No chest pain , No nausea, No vomiting, No abdominal pain, No melena, No diarrhea, No urinary symptoms Note: Positive: sinus congestion. Review of Systems See HPI for pertinent positives & negatives. A total of 10 systems reviewed and were otherwise negative. Past Medical & Surgical Medical Problems: (1) Asthma (2) Chronic back pain (3) GERD (gastroesophageal reflux disease) (4) Lung mass (5) Rectal cancer Family History Depression Diabetes mellitus FHx: cancer FHx: heart disease FHx: lung disease Hypertension Social History Smoking Status: Never Smoker Alcohol Use: occasionally Drug Use: none Marital Status: Housing Status: lives with family Occupation Status: employed Current/Historical Medications Scheduled Acetaminophen (Tylenol), 500-1,000 MG PO PRN Arformoterol Tartrate (Brovana), 1 DOSE NEB QAM Azithromycin (Zithromax), 500 MG PO DAILY Cefuroxime Axetil (Cefuroxime Axetil), 500 MG PO BID Fexofenadine HCl (Mucinex Allergy), 1 TAB PO BID Fish Oil ([place]-3), 1 CAP PO QAM Fluticasone Propionate (Nasal) (Flonase Allergy Relief), 2 SPRAYS DUANE DAILY Lactobacillus-Inulin (Culturelle), 1 TAB PO DAILY Methylcellulose (Laxative) (Citrucel Fiber Laxative), 1 DOSE PO QPM Multivitamin (Multivitamin), 1 TAB PO BID Polyethylene (Miralax), 1 DOSE PO Q2D Potassium Chloride (Potassium Chloride ER), 20 MEQ PO QAM Prednisone (Prednisone), 50 MG PO DAILY Travoprost (Travatan Z), 1 DROPS OPR HS Scheduled PRN Albuterol Sulfate (Proair Respiclick), 2 PUFFS INH Q4 PRN for SOB/Wheezing Ipratropium-Albuterol (Duoneb), 1 TREATMENT INH Q4H PRN for SOB/Wheezing Loperamide Hcl (Imodium), 4 MG PO Q6 PRN for Diarrhea Omeprazole (Prilosec), 20 MG PO DAILY PRN for ACID REFLUX Allergies Coded Allergies: Levofloxacin (Verified Allergy, Severe, SHORTNESS OF BREATH, 02/16/18) Oxaliplatin (Verified Allergy, Severe, ANAPHYLAXIS, 02/16/18) Dust (Verified Allergy, Intermediate, SNEEZING, RUNNY NOSE, ITCHY EYES., ) Molds and Smuts (Verified Allergy, Intermediate, RUNNY NOSE, ITCHY EYES, SNEEZING, 02/16/18) Doxycycline (Verified Allergy, Mild, RASH, 02/16/18) Sulfa Antibiotics (Verified Allergy, Mild, HIVES,ITCHY, 02/16/18) Codeine (Verified Adverse Reaction, Mild, NAUSEA, 02/16/18) Morphine and Related (Verified Adverse Reaction, Mild, nausea, 02/16/18) Moxifloxacin (Verified Adverse Reaction, Unknown, "I GET DIZZY.", 02/16/18) Physical Exam Vital Signs Date Time Temp Pulse Resp B/P (MAP) Pulse Ox O2 Delivery O2 Flow Rate FiO2 02/16/18 09:57 78 20 121/58 99 02/16/18 08:09 Room Air 02/16/18 07:53 36.8 91 18 115/74 99 Room Air Physical Exam GENERAL: Sitting up in bed, alert, dry and nonproductive cough, no distress, non -toxic EYE EXAM: normal conjunctiva. OROPHARYNX: no exudate, no erythema, lips, buccal mucosa, and tongue normal and mucous membranes are moist NECK: supple, no nuchal rigidity, no adenopathy, non-tender LUNGS: Normal expiratory wheezes bilaterally. HEART: no murmurs, S1 normal and S2 normal ABDOMEN: abdomen soft, non-tender, normo-active bowel sounds, no masses, no rebound or guarding. BACK: Back is symmetrical on inspection and there is no deformity, no midline tenderness, no CVA tenderness. SKIN: no rashes and no bruising UPPER EXTREMITIES: upper extremities are grossly normal. LOWER EXTREMITIES: Calves are equal bilaterally. NEURO EXAM: Normal sensorium, cranial nerves II-XII grossly intact, normal speech, no gross weakness of arms, no gross weakness of legs. Medical Decision & Procedures ER Provider Diagnostic Interpretation: Radiology results as stated below per my review and the radiologist's interpretation: CHEST 2 VIEWS ROUTINE FINDINGS: No pneumothorax. Volume loss within the right hemithorax, unchanged consistent with postoperative change. Small right pleural effusion has improved. No focal lung consolidations to suggest pneumonia. No evidence for pulmonary edema. The heart is normal in size. IMPRESSION: Improvement in the small right pleural effusion. No acute process within the chest. Electronically signed by: Alexys Gonsales M.D. 02/16/2018 9:35 AM Laboratory Results 02/16/18 08:44 Red Blood Count 4.31, Mean Corpuscular Volume 82.1, Mean Corpuscular Hemoglobin 27.4, Mean Corpuscular Hemoglobin Concent 33.3, Mean Platelet Volume 9.1, Neutrophils (%) (Auto) 61.4, Lymphocytes (%) (Auto) 27.2, Monocytes (%) (Auto) 7.6, Eosinophils (%) (Auto) 2.4, Basophils (%) (Auto) 0.6, Neutrophils # (Auto) 3.09, Lymphocytes # (Auto) 1.37, Monocytes # (Auto) 0.38, Eosinophils # (Auto) 0.12, Basophils # (Auto) 0.03 02/16/18 08:44 Test 02/16/18 08:44 02/16/18 10:20 White Blood Count 5.03 K/uL (4.8-10.8) Red Blood Count 4.31 M/uL (4.2-5.4) Hemoglobin 11.8 g/dL (12.0-16.0) Hematocrit 35.4 % (37-47) Mean Corpuscular Volume 82.1 fL (80-100) Mean Corpuscular Hemoglobin 27.4 pg (25-34) Mean Corpuscular Hemoglobin Concent 33.3 g/dl (32-36) Platelet Count 227 K/uL (130-400) Mean Platelet Volume 9.1 fL (7.4-10.4) Neutrophils (%) (Auto) 61.4 % Lymphocytes (%) (Auto) 27.2 % Monocytes (%) (Auto) 7.6 % Eosinophils (%) (Auto) 2.4 % Basophils (%) (Auto) 0.6 % Neutrophils # (Auto) 3.09 K/uL (1.4-6.5) Lymphocytes # (Auto) 1.37 K/uL (1.2-3.4) Monocytes # (Auto) 0.38 K/uL (0.11-0.59) Eosinophils # (Auto) 0.12 K/uL (0-0.5) Basophils # (Auto) 0.03 K/uL (0-0.2) RDW Standard Deviation 44.2 fL (36.4-46.3) RDW Coefficient of Variation 14.7 % (11.5-14.5) Immature Granulocyte % (Auto) 0.8 % Immature Granulocyte # (Auto) 0.04 K/uL (0.00-0.02) Anion Gap 10.0 mmol/L (3-11) Est Creatinine Clear Calc Drug Dose 69.9 ml/min Estimated GFR () 76.3 Estimated GFR (Non- 65.9 BUN/Creatinine Ratio 16.2 (10-20) Calcium Level 9.3 mg/dl (8.5-10.1) Chemistry Specimen Hemolysis Influenza Type A Antigen Neg for Influ A (NEG) Influenza Type B Antigen Neg for Influ B (NEG) Laboratory results per my review. Medications Administered Medications (Trade) Dose Ordered Sig/Bernadine Route Start Time Stop Time Status Last Admin Dose Admin Albuterol Sulfate (Ventolin 0.083% 2.5MG/3ML Neb) 2.5 mg NOW STAT INH 02/16/18 08:18 02/16/18 08:19 DC 02/16/18 08:37 2.5 MG Prednisone (PredniSONE TAB) 60 mg NOW STAT PO 02/16/18 10:02 02/16/18 10:04 DC 02/16/18 10:23 60 MG ECG Per My Interpretation Indication: SOB/dyspnea Rate (beats per minute): 73 Rhythm: sinus rhythm Findings: no ectopy, other (Normal axis.) ED Course ED COURSE: Vital signs were reviewed and appeared normal. The patients medical record was reviewed The above diagnostic studies were performed and reviewed. ED treatments and interventions as stated above. 0809: The patient was evaluated in room A4B. A complete history and physical examination was performed. 0818: Ordered Ventolin 0.083% 2.5 mg/3 mL Neb 2.5 mg INH. 1002: Ordered Prednisone Tab 60 mg PO. 1008: Upon reevaluation, the patient is resting comfortably. I discussed my findings with the patient and she understands and agrees with the treatment plan. Based on the patients age, coexisting illnesses, exam and lab findings the decision to treat as an outpatient was made. The patient remained stable while under my care. The patient appeared well at the time of discharge. Medical Decision Differential diagnoses includes but is not limited to pneumonia, bronchitis, COPD/Asthma exacerbation, pneumothorax, pulmonary embolism, congestive heart failure, acute coronary syndrome. Patient is a 63-year-old female presents to ER for persistent cough associated with sinus congestion. Patient admits to a productive cough associated with some shortness of breath and runny nose. CBC and BMP were unremarkable. Vitals are stable. She has been on multiple antibiotics recently and just this weekend started on third-generation cephalosporin. She was placed on these for possible sinus infections. EKG was unremarkable. Chest x-ray without pneumonia. Based on the patient's presentation I do believe that this consistent with a viral URI. Influenza was negative. Discussed with pulmonology. They will follow her up on Wednesday. Did agree with steroids. She was discharged follow-up with PCP as an outpatient. Vitals remained stable while in the ER and at no point she become hypoxic. Discussed with Pt concerning signs and symptoms to watch out for. Pt was instructed to follow up with their PCP and discussed with the patient their option to return to the ED at anytime for persistent or worsening symptoms. The appropriate anticipatory guidance and out-patient management, including indications for return to the emergency department, were explained at length to the patient and understood. Medication Reconcilliation Current Medication List: was personally reviewed by me Blood Pressure Screening Patient's blood pressure: Normal blood pressure Blood pressure disposition: Did not require urgent referral Consults Time Called: [phone] Consulting Physician: Teofilo Linn PA-C - Pulmonology Returned Call: [phone] I reviewed the patient's case with Teofilo Linn PA-C. He agrees with the treatment plan. He recommends the patient be started on steroids and follow up. Impression Primary Impression: Bronchitis Scribe Attestation The scribe's documentation has been prepared under my direction and personally reviewed by me in its entirety. I confirm that the note above accurately reflects all work, treatment, procedures, and medical decision making performed by me. Departure Information Dispostion Home / Self-Care Prescriptions Prednisone (PREDNISONE) 50 Mg Tab 50 MG PO DAILY for 4 Days, TAB Prov: Dion Wynn, DO 02/16/18 Referrals ,Lon Bourne M.D. (PCP) Forms HOME CARE DOCUMENTATION FORM, IMPORTANT VISIT INFORMATION, WORK / SCHOOL INSTRUCTIONS Patient Instructions Bronchitis Acute, My [facility] Additional Instructions Please follow up with your primary care doctor with in the next 24 hours. Any worsening of your symptoms, please return to the ED immediately. This includes any fevers greater than 100.4, worsening pain, chest pain, shortness breath, persistent nausea, vomiting, unable to eat or drink, or any other concerning signs or symptoms from your standpoint. Please continue your antibiotics as prescribed. Please take steroids as prescribed as well. Please call your injection molding machine offbearer inform them that you are in the ER and they want you to be seen this Wednesday prior to the weekend.
== END 2018-02-16 10:32 | disposition home or self-care (01) ==
LOC: C.EDB 07:48 → C.EDA 10:32
DX: J40 Bronchitis, not specified as acute or chronic (principal); J45.909 Unspecified asthma, uncomplicated; K21.9 Gastro-esophageal reflux disease without esophagitis; Z85.048 Personal history of other malignant neoplasm of rectum, rectosigmoid junction, and anus; Z79.899 Other long term (current) drug therapy; Z88.1 Allergy status to other antibiotic agents; Z88.2 Allergy status to sulfonamides; Z88.5 Allergy status to narcotic agent; Z88.8 Allergy status to other drugs, medicaments and biological substances; Z91.048 Other nonmedicinal substance allergy status

== ENCOUNTER → 2018-02-25 | Outpatient (CLI) | payer BC ==
[~2018-02-25] MED LIST changes: +AZIT500T26 PO; -CALC500C70 PO; +CEFU1TAB35 PO; -[UNRECOGNIZED DRUG - OTHER] PO
--- NOTE | 2018-02-25 13:28 | DIAGNOSTIC IMAGING REPORT ---
CHEST 2 VIEWS ROUTINE CLINICAL HISTORY: J01.00 Acute maxillary [id number] COUGH, PLEURAL EFFUSION. FOLLOW-UP STUDY. COMPARISON STUDY: 02/16/2018 FINDINGS: The cardiac and mediastinal contours remain stable. There is a persistent small right pleural effusion. There is no failure. There is no focal pulmonary consolidation.[ IMPRESSION: Small right pleural effusion, unchanged from the prior study. No acute findings. Electronically signed by: Moy Rinaldi M.D. 02/25/2018 1:27 PM Dictated Date/Time: 02/25/2018 1:25 PM
--- NOTE | 2018-02-25 13:33 | DIAGNOSTIC IMAGING REPORT ---
SINUSES MIN 3 VIEWS ROUTINE CLINICAL HISTORY: J01.00 Acute maxillary [id number] COMPARISON STUDY: 09/19/2010 FINDINGS: There are no air-fluid levels to indicate acute sinusitis. There is minor max or sinuses mucosal thickening. IMPRESSION: 1. No conventional radiographic evidence of acute sinusitis 2. Minor maxillary sinus mucosal thickening Electronically signed by: Moy Rinaldi M.D. 02/25/2018 1:32 PM Dictated Date/Time: 02/25/2018 1:27 PM
== END | disposition home or self-care (01) ==
LOC: C.RAD1850 13:08
PROVIDERS: ATTEND Physician Assistant
DX: J01.00 Acute maxillary sinusitis, unspecified (principal); J90 Pleural effusion, not elsewhere classified

== ENCOUNTER → 2018-03-07 | Outpatient (CLI) | payer BC ==
[2018-03-07 17:39] LABS: BLOOD UREA NITROGEN 19 mg/dl (7-18); CALCIUM 8.4 mg/dl (8.5-10.1); CARBON DIOXIDE 25 mmol/L (21-32); CREATININE 0.83 mg/dl (0.60-1.20); GLUCOSE 105 mg/dl (70-99); POTASSIUM 3.7 mmol/L (3.5-5.1); SODIUM 139 mmol/L (136-145)
[2018-03-09 15:36] LABS: ANTI-SS-A <1.0 NEG AI (<1.0 NEG); ANTI-SS-B <1.0 NEG AI (<1.0 NEG)
== END | disposition home or self-care (01) ==
LOC: C.LAB 15:39
PROVIDERS: ATTEND Physician Assistant
DX: Z87.19 Personal history of other diseases of the digestive system (principal); J45.909 Unspecified asthma, uncomplicated

== ENCOUNTER → 2018-06-16 | Outpatient (CLI) | payer BC ==
[~2018-06-16] MED LIST changes: +IPRA-64 INH; -IPRASOL4 INH
--- NOTE | 2018-06-16 15:14 | MAMMOGRAPHY REPORT ---
BILATERAL DIGITAL SCREENING MAMMOGRAM TOMOSYNTHESIS WITH CAD: 06/16/2018 CLINICAL HISTORY: Routine screening. Patient has no complaints. TECHNIQUE: The study was acquired using full field digital technology and interpreted from soft copy. Breast tomosynthesis in addition to standard 2D mammography was performed. Current study was also ev aluated with a Computer Aided Detection (CAD) system. COMPARISON: Comparison is made to exams dated: 02/26/2017 mammogram, 11/05/2015 mammogram, 07/10/2014 m ammogram, 07/03/2013 mammogram, 06/10/2012 mammogram, and 06/02/2011 mammogram - [facility]ter. BREAST COMPOSITION: There are scattered areas of fibroglandular density in both breasts. FINDINGS: No suspicious masses, calcifications, or areas of architectural distortion are noted in either breast . There has been no significant interval change compared to prior exams. IMPRESSION: ACR BI-RADS CATEGORY 1: NEGATIVE There is no mammographic evidence of malignancy. A 1 year screening mammogram is recommended.( 019) The patient will receive written notification of the results. Some breast cancers are not detected with mammography. A negative mammographic report should not alicia y biopsy if a clinically suggestive mass is present. Debby Arce M.D. ah/:06/16/2018 13:46:51 Rig Site Engineer: RT Anais(Moreno)(M), [facility] letter sent: Normal 1/2 BI-RADS Code: ACR BI-RADS Category 1: Negative
== END | disposition home or self-care (01) ==
LOC: C.MAMM 13:05
PROVIDERS: ATTEND Obstetrics & Gynecology
DX: Z12.31 Encounter for screening mammogram for malignant neoplasm of breast (principal)